=== PATIENT | female | born 1940 | race Caucasian/White ===

== ENCOUNTER 2019-10-23 11:14 | Outpatient (CLI) | payer MEDICARE, SELFPAY ==
--- NOTE | ~2019-10-23 | CT_ITS ---
EXAMINATION: CT brain wo con DATE: 10/23/2019 11:47 INDICATION: Fall from bed. Meniere disease. TECHNIQUE: Computed tomography (CT) of the head was performed without intravenous contrast. The mA wa s adjusted according to patient size. Iterative reconstruction technique was employed. Exam dose: 52 9.67 mGy-cm total exam DLP. COMPARISON: None FINDINGS: Bilateral vertebral artery and carotid siphon internal carotid artery calcifications. There is nonspecific diminished attenuation of the cerebral white matter, likely due to chronic small vessel ischemic changes. Minimal left basal ganglia calcification. No intracranial mass lesion or hemorrhage or recent cerebrovascular accident is evident. No midline s hift or mass effect. Mild age-consistent cerebral volume loss. No subdural or epidural hematoma is detected. Postoperative change of the inferomedial wall of the right orbit and opacification of right ethmoid a ir cells. The remainder of the included paranasal sinuses and the mastoid air cells are normally deve loped and aerated. No fracture or bone destruction of the cranial vault. IMPRESSION: Cerebral atherosclerosis and chronic small vessel ischemic changes of the cerebral white matter No acute intracranial finding Reviewed, dictated and finalized at [facility]. Reviewed, dictated and finalized at location B. 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
== END 2019-10-23 11:15 | disposition home or self-care (01) ==
PROVIDERS: PCP Physician Assistant; Visit Provider Physician Assistant
DX: H81.09 Meniere's disease, unspecified ear (principal); I67.2 Cerebral atherosclerosis; W06.XXXA Fall from bed, initial encounter
CPT/HCPCS: 70450

== ENCOUNTER 2019-10-24 14:50 | Outpatient (CLI) | payer MEDICARE, SELFPAY ==
--- NOTE | ~2019-10-24 | XR_ITS ---
XR chest 2V DATE: 10/24/2019 15:09 INDICATION: Cough for 2 weeks. History of asthma. TECHNIQUE: PA and lateral views COMPARISON: 04/26/2012 two-view chest FINDINGS: There is prominent bibasilar discoid atelectasis or scarring, increased in prominence kemal red to 04/26/2012. Otherwise no pulmonary consolidation is noted. No pleural effusion or pulmonary vas cular congestion or pneumothorax is detected. Normal heart size. 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
== END 2019-10-24 14:51 | disposition home or self-care (01) ==
PROVIDERS: PCP Physician Assistant; Visit Provider Family Medicine
DX: R05 Cough (principal); R91.8 Other nonspecific abnormal finding of lung field
CPT/HCPCS: 71046

== ENCOUNTER 2019-11-18 09:16 | Outpatient (CLI) | payer MEDICARE, SELFPAY ==
--- NOTE | ~2019-11-18 | MM_ITS ---
EXAMINATION: MM screening jennifer BI w pino HISTORY: Screening mammogram TECHNIQUE: Craniocaudal and mediolateral oblique 3-D tomosynthesis images were obtained and synthetic 2-D images were generated. CAD analysis was submitted and interpreted. COMPARISON: Comparison to multiple prior studies sequentially, with oldest reviewed study dated 08/04. BREAST PARENCHYMAL COMPOSITION: There are scattered areas of fibroglandular density. FINDINGS: The right breast is stable without evidence for malignancy. There is a developing focal asy mmetry lower inner quadrant of the left breast with associated calcifications. IMPRESSION: 1. Developing left breast asymmetry. 2. Additional mammographic views and possible breast ultrasound are recommended. BI-RADS Category 0: Incomplete: Needs additional imaging evaluation. Reviewed, dictated and finalized at location A. IMPRESSION: 1. Developing left breast asymmetry. 2. Additional mammographic views and possible breast ultrasound are recommended . BI-RADS Category 0: Incomplete: Needs additional imaging evaluation.
== END 2019-11-18 09:17 | disposition home or self-care (01) ==
PROVIDERS: PCP Physician Assistant; Visit Provider Nurse Practitioner Women's Health
DX: Z12.31 Encounter for screening mammogram for malignant neoplasm of breast (principal); R92.8 Other abnormal and inconclusive findings on diagnostic imaging of breast
CPT/HCPCS: 77063; 77067

== ENCOUNTER 2019-12-06 11:57 | Outpatient (CLI) | payer MEDICARE, SELFPAY ==
--- NOTE | ~2019-12-06 | MMUS_ITS ---
EXAMINATION: MM diagnostic jennifer LT w pino, US breast LT limited HISTORY: TECHNIQUE: Additional 3-D tomosynthesis images of were performed and synthetic 2-D images were genera bianka. CAD analysis was submitted and interpreted. High resolution breast ultrasound was performed. COMPARISON: None FINDINGS: MAMMOGRAPHIC FINDINGS: There is a focal approximately 2 x 5 mm ill-defined opacity with microcalcifications situated anterio rly in the lower inner quadrant of the left breast. ULTRASOUND: There is no evidence of focal abnormal solid or cystic lesion or shadowing in the vicinity of the low er inner quadrant left breast soft tissue density and calcifications. IMPRESSION: 1. Focal 2 x 5 mm opacity with microcalcifications, lower inner left breast 2. Stereotactic biopsy is recommended. BI-RADS category 4, suspicious findings. Dr. Gupta telephoned the report and stereotactic biopsy recommendation on 12/06/2019 at 1318 hours to Tawnya Borges. Reviewed, dictated and finalized at location A. IMPRESSION: 1. Focal 2 x 5 mm opacity with microcalcifications, lower inner left breast 2. Stereotactic biopsy is recommended. BI-RADS category 4, suspicious findings. Dr. Gupta telephoned the report and stereotactic biopsy recommendation on 12/06/19 at 1318 hours to Nurse Borges.
== END 2019-12-06 11:58 | disposition home or self-care (01) ==
PROVIDERS: PCP Physician Assistant; Visit Provider Nurse Practitioner Women's Health
DX: R92.8 Other abnormal and inconclusive findings on diagnostic imaging of breast (principal)
CPT/HCPCS: 76642; 77061; 77065; G0279

== ENCOUNTER 2019-12-12 09:02 | Outpatient (CLI) | payer MEDICARE, SELFPAY ==
--- NOTE | ~2019-12-12 | MM_ITS ---
MM post biopsy invasive LT DATE: 12/12/2019 11:01 INDICATION: Post stereotactic biopsy mammogram TECHNIQUE: Digital ML and cc views of left breast following stereotactic biopsy COMPARISON: 12/06/2019 diagnostic left digital mammogram FINDINGS: The biopsy marker is in unexpected position on the opposite lateral side of the breast from the previously noted lower inner quadrant left breast microcalcifications. The left breast lower inner quadrant microcalcifications were all successfully removed by this stereo tactic biopsy, with a biopsy marker unfortunately is not in the same position as the microcalcificati ons. Biopsy marker is now in the upper outer quadrant as opposed to the former position of the microc alcifications in the lower inner quadrant. The biopsy marker should not be used in the event that pre operative wire localization of the area of microcalcifications is indicated. For this purpose, the po sition of the microcalcifications should be estimated based upon the prebiopsy 12/06/2019 diagnostic le ft digital mammogram. IMPRESSION: Migration of biopsy marker into upper outer quadrant; the microcalcifications that were b iopsied successfully were in the lower inner quadrant. The biopsy marker should NOT be used for any p reoperative wire localization procedure should surgical excision of the former area of microcalcifica tions be required. Positional microcalcifications can be estimated based upon the 12/06/2019 diagnosti c left mammogram prior to the stereotactic biopsy. Reviewed, dictated and finalized at [facility]. Reviewed, dictated and finalized at location A. IMPRESSION: Migration of biopsy marker into upper outer quadrant; the microcalc ifications that were biopsied successfully were in the lower inner quadrant. Th e biopsy marker should NOT be used for any preoperative wire localization proce dure should surgical excision of the former area of microcalcifications be requ ired. Positional microcalcifications can be estimated based upon the 12/06/2019 diagnostic left mammogram prior to the stereotactic biopsy.
--- NOTE | ~2019-12-12 | MM_ITS ---
MM stereotactic specimen LT DATE: 12/12/2019 11:00 INDICATION: Stereotactic biopsy of lower inner quadrant left breast microcalcifications TECHNIQUE: Digital mammographic exposure of 2 separate collections of stereotactic biopsy specimen ti ssue COMPARISON: 12/06/2019 diagnostic left digital mammogram 12/12/2019 post-stereotactic biopsy diagnostic left mammogram FINDINGS: The initial collection of specimen tissue contained 2 contiguous rounded microcalcification s. A second set of biopsy tissue was obtained, yielding numerous microcalcifications of interest. IMPRESSION: Successful removal of all microcalcifications of interest from the lower inner quadrant o f the left breast Reviewed, dictated and finalized at Location [facility]. Reviewed, dictated and finalized at location A. IMPRESSION: Successful removal of all microcalcifications of interest from the lower inner quadrant of the left breast
--- NOTE | ~2019-12-12 | MM_ITS ---
ADDENDUM 12/13/2019 pathology report: Proliferative fibrocystic changes without atypia; no evidence of neoplasm The pathology and mammographic findings are concordant. 12/30/19 -[facility] EXAMINATION: MM stereotactic bx LT, Specimen Radiograph, Tissue Marker Clip Placement, Unilateral Mammogram DATE: 12/12/2019 10:59 INDICATION: Abnormal mammogram: Focal 2 x 5 mm asymmetric opacity with microcalcifications in the lower inner left breast reported on 12/06/2019 diagnostic left mammogram. TECHNIQUE AND FINDINGS: The risks and potential benefits of the procedure were discussed with the patient and written informed consent was obtained. Timeout procedure was performed. The patient was placed in the prone position on the dedicated stereotactic table with the left breast in mediolateral compression, and the area of interest was localized and targeted utilizing digital imaging with stereotaxis. After sterile preparation of the skin, 1% lidocaine was utilized for local anesthesia at the skin puncture site and 1% lidocaine with epinephrine was utilized for deeper local anesthesia/is about the biopsy site. A 9G UniQure vacuum assisted biopsy needle was advanced to the level of the calcification of interest from a medial approach utilizing stereotactic guidance and a total of 24 tissue core biopsies were obtained. A specimen radiograph demonstrates that the calcifications of interest are included within the tissue cores. A tissue marker clip was then placed at the biopsy site. A digital mammographic exposure confirmed the successful deployment of the biopsy marker. The needle was removed and hemostasis was achieved. A sterile bandage was applied. The patient tolerated the procedure well and there is no evidence of significant immediate complication. The patient was given verbal as well as written postprocedural instructions prior to discharge from the department. Tissue cores were submitted to surgical pathology for histologic analysis. A 2-view right unilateral digital mammogram was obtained post procedure, demonstrating the tissue marker clip in unexpected position on the far opposite lateral side of the breast. The marker apparently did not return to expected position with release of compression of the breast following the biopsy. I telephoned Oralia polanco, Director of Mammography, and indicated that this patient's case should be tagged in the event that surgical excision of the area of microcalcifications is requested, in order to prevent biopsy of the wrong area in the lateral breast as opposed to the original position of the calcifications in the lower inner quadrant. IMPRESSION: 1. Successful stereotactic biopsy of left breast lower inner quadrant microcalcifications, 2. Unexpected biopsy marker position in the lower outer quadrant; the mammographic calcifications of interest that were successfully biopsied were located in the lower inner quadrant. Should the area of the former microcalcifications need to be surgically removed, the biopsy marker should not be used as a marker for position for the prior microcalcifications. Former position of the microcalcifications should be estimated based upon the pre- biopsy 12/06/2019 diagnostic left mammogram Please refer to pathology report for histologic analysis. Reviewed, dictated and finalized at Location [facility]. Reviewed, dictated and finalized at location A. MTDD IMPRESSION: 1. Successful stereotactic biopsy of left breast lower inner quadrant microca lcifications, 2. Unexpected biopsy marker position in the lower outer quadrant; the mammogra phic calcifications of interest that were successfully biopsied were located in the lower inner quadrant. Should the area of th
== END 2019-12-12 09:03 | disposition home or self-care (01) ==
PROVIDERS: PCP Physician Assistant; Visit Provider Nurse Practitioner Women's Health
DX: R92.8 Other abnormal and inconclusive findings on diagnostic imaging of breast (principal)
CPT/HCPCS: 19081; 88305; A4648

== ENCOUNTER 2020-01-17 13:22 | Outpatient (CLI) | payer MEDICARE, SELFPAY ==
--- NOTE | ~2020-01-17 | US_ITS ---
US breast LT limited DATE: 01/17/2020 14:56 INDICATION: Redness, induration, tenderness; recent stereotactic biopsy, 12/12/2019, no evidence of lorraine plasm TECHNIQUE: High-resolution ultrasound imaging at area of concern at 3:00 2 cm from nipple, 4:00 3 cm from nipple and subareolar areas COMPARISON: 12/06/2019 left breast ultrasound FINDINGS: There is interval development of some prominent ducts, some with debris. No suspicious shad owing or irregular poorly circumscribed mass is evident. IMPRESSION: BI-RADS Category 3: Probably benign Recommendation: 6 month left breast ultrasound follow-up Reviewed, dictated and finalized at Location [facility]. Reviewed, dictated and finalized at location A.
== END 2020-01-17 13:23 | disposition home or self-care (01) ==
LOC: ANHIMG 13:24
PROVIDERS: PCP Physician Assistant; Visit Provider Obstetrics & Gynecology Gynecologic Oncology
DX: N61.0 Mastitis without abscess (principal)
CPT/HCPCS: 76642

== ENCOUNTER 2020-06-12 13:05 | Outpatient (CLI) | payer MEDICARE, SELFPAY ==
--- NOTE | ~2020-06-12 | MM_ITS ---
EXAMINATION: MM diagnostic jennifer LT w pino HISTORY: Recent benign left breast biopsy TECHNIQUE: Additional 3-D tomosynthesis images of the left breast were performed and synthetic 2-D im ages were generated. CAD analysis was submitted and interpreted. COMPARISON: Comparison to multiple prior studies sequentially, with oldest reviewed study dated 12/2018. BREAST PARENCHYMAL COMPOSITION: Breast composed of scattered areas of fibroglandular density. FINDINGS: There are no suspicious masses, calcifications or architectural distortion in the left debbie st to suggest malignancy. There is a tissue marker in the upper outer quadrant of the left breast. IMPRESSION: 1. No mammographic evidence for malignancy in the left breast. 2. Routine yearly screening mammogram and regular clinical breast examination are recommended. BI-RADS Category 2: Benign finding(s). Reviewed, dictated and finalized at location A. IMPRESSION: 1. No mammographic evidence for malignancy in the left breast. 2. Routine yearly screening mammogram and regular clinical breast examination a re recommended. BI-RADS Category 2: Benign finding(s).
== END 2020-06-12 13:06 | disposition home or self-care (01) ==
PROVIDERS: PCP Physician Assistant; Visit Provider Nurse Practitioner Women's Health
DX: R92.2 Inconclusive mammogram (principal)
CPT/HCPCS: 77061; 77065; G0279

== ENCOUNTER 2020-12-11 08:46 | Outpatient (CLI) | payer MEDICARE, SELFPAY ==
--- NOTE | ~2020-12-11 | MM_ITS ---
EXAMINATION: MM screening jennifer BI w pino HISTORY: Screening mammogram TECHNIQUE: Craniocaudal and mediolateral oblique 3-D tomosynthesis images were obtained and synthetic 2-D images were generated. CAD analysis was submitted and interpreted. COMPARISON: 06/08/2020 diagnostic left digital mammogram 01/17/2020 limited left breast ultrasound 12/06/2019 diagnostic left sonogram and limited left breast ultrasound 11/18/2019, 10/08/2018 bilateral digital screening mammogram examinations BREAST PARENCHYMAL COMPOSITION: There are scattered areas of fibroglandular density. FINDINGS: There is a biopsy marker on the left; history of prior benign left breast biopsy. Occasional bilateral benign calcifications. There is no evidence of suspicious mass, calcification, o r architectural distortion to suggest malignancy in either breast. There has been no suspicious inter joleen change. IMPRESSION: 1. No mammographic evidence of malignancy. 2. Recommend routine screening mammography in one year. BI-RADS Category 2: Benign finding(s). Reviewed, dictated and finalized at location A.
== END 2020-12-11 08:47 | disposition home or self-care (01) ==
LOC: ANHIMG 08:47
PROVIDERS: PCP Physician Assistant; Visit Provider Obstetrics & Gynecology Gynecologic Oncology
DX: Z12.31 Encounter for screening mammogram for malignant neoplasm of breast (principal)
CPT/HCPCS: 77063; 77067

== ENCOUNTER 2021-03-17 09:54 | Outpatient (CLI) | payer MEDICARE, SELFPAY ==
--- NOTE | ~2021-03-17 | XR_ITS ---
EXAMINATION: XR elbow RT min 3V DATE: 03/17/2021 10:11 INDICATION: Right elbow injury and pain. TECHNIQUE: 4 views of right elbow were obtained. COMPARISON: None. FINDINGS: Bone alignment is normal. No fracture. There is mild elbow joint osteoarthritis. No elbow j oint effusion. There are dystrophic calcifications posterolateral to radial head. There are enthesoph ytes at medial and lateral humeral epicondyles. IMPRESSION: 1. Mild elbow joint osteoarthritis. Reviewed, dictated and finalized at location A.
== END 2021-03-17 09:55 | disposition home or self-care (01) ==
PROVIDERS: PCP Physician Assistant; Visit Provider Physician Assistant
DX: M19.021 Primary osteoarthritis, right elbow (principal)
CPT/HCPCS: 73080

== ENCOUNTER 2021-05-11 12:43 | Outpatient (CLI) | payer MEDICARE, SELFPAY ==
--- NOTE | ~2021-05-11 | XR_ITS ---
EXAMINATION: XR chest 2V DATE: 05/11/2021 13:11 INDICATION: Essential primary hypertension, congestive heart failure TECHNIQUE: PA and lateral views of the chest are obtained. COMPARISON: 05/24/2020 FINDINGS: The lungs are free of acute opacities. There is chronic atelectasis versus scarring in the lung bases. There is no pleural effusion or pneumothorax. The cardiomediastinal silhouette is normal. There is mild thoracic spondylosis. IMPRESSION: 1. No acute cardiopulmonary abnormality. Reviewed, dictated and finalized at location B.
== END 2021-05-11 12:44 | disposition home or self-care (01) ==
LOC: ANHIMG 12:49
PROVIDERS: PCP Physician Assistant; Visit Provider Physician Assistant
DX: I50.9 Heart failure, unspecified (principal); I10 Essential (primary) hypertension
CPT/HCPCS: 71046

== ENCOUNTER → 2021-06-26 03:16 | Outpatient (CLI) | payer MEDICARE, SELFPAY ==
[2021-06-26 18:07] LABS: SARS-CoV-2 RNA PCR Negative
== END ==
PROVIDERS: PCP Physician Assistant; Visit Provider Physician Assistant
DX: Z20.822 Contact with and (suspected) exposure to COVID-19 (principal)
CPT/HCPCS: C9803; U0003; U0005

== ENCOUNTER → 2021-08-17 01:06 | Outpatient (CLI) | payer MEDICARE, SELFPAY ==
[2021-08-18 02:02] LABS: SARS-CoV-2 RNA PCR Positive
== END ==
PROVIDERS: PCP Physician Assistant; Visit Provider Family Medicine
DX: U07.1 COVID-19 (principal)
CPT/HCPCS: C9803; U0003; U0005

== ENCOUNTER 2021-12-17 14:29 | Outpatient (CLI) | payer MEDICARE, SELFPAY ==
--- NOTE | ~2021-12-17 | MM_ITS ---
EXAMINATION: MM screening jennifer BI w pino HISTORY: Screening TECHNIQUE: Craniocaudal and mediolateral oblique 3-D tomosynthesis images were obtained and synthetic 2-D images were generated. CAD analysis was submitted and interpreted. COMPARISON: Comparison to multiple prior studies sequentially, with oldest reviewed study dated 11/2019. BREAST PARENCHYMAL COMPOSITION: Breast composed of scattered areas of fibroglandular density FINDINGS: There is no evidence of suspicious mass, calcification, or architectural distortion to sugg est malignancy in either breast. There has been no suspicious interval change. IMPRESSION: 1. No mammographic evidence of malignancy. 2. Recommend routine screening mammography in one year. BI-RADS Category 1: Negative Reviewed, dictated and finalized at location A.
== END 2021-12-17 14:30 | disposition home or self-care (01) ==
LOC: ANHIMG 14:30
PROVIDERS: PCP Physician Assistant; Visit Provider Obstetrics & Gynecology Gynecologic Oncology
DX: Z12.31 Encounter for screening mammogram for malignant neoplasm of breast (principal)
CPT/HCPCS: 77063; 77067

== ENCOUNTER 2023-05-09 14:01 | Outpatient (CLI) | payer MEDICARE, SELFPAY ==
--- NOTE | ~2023-05-09 | MM_ITS ---
EXAMINATION: MM screening jennifer BI w pino HISTORY: Screening mammogram TECHNIQUE: Craniocaudal and mediolateral oblique 3-D tomosynthesis images were obtained and synthetic 2-D images were generated. CAD analysis was submitted and interpreted. COMPARISON: December 17, 2021, December 11, 2020 bilateral screening mammogram examinations BREAST PARENCHYMAL COMPOSITION: There are scattered areas of fibroglandular density. FINDINGS: There is no evidence of suspicious mass, calcification, or architectural distortion to sugg est malignancy in either breast. There has been no suspicious interval change. IMPRESSION: 1. No mammographic evidence of malignancy. 2. Recommend routine screening mammography in one year. BI-RADS Category 1: Negative Reviewed, dictated and finalized at location A.
== END 2023-05-09 14:02 | disposition home or self-care (01) ==
PROVIDERS: PCP Physician Assistant; Visit Provider Obstetrics & Gynecology Gynecologic Oncology
DX: Z12.31 Encounter for screening mammogram for malignant neoplasm of breast (principal)
CPT/HCPCS: 77063; 77067

== ENCOUNTER 2023-05-15 10:51 | Outpatient (CLI) | payer MEDICARE, SELFPAY ==
--- NOTE | ~2023-05-15 | US_ITS ---
EXAMINATION: US carotid duplex BI DATE: 05/15/2023 11:27 INDICATION: Carotid stenosis and occlusion TECHNIQUE: Grayscale, color Doppler, and pulsed Doppler images of the cervical carotid arteries were obtained. The degree of vessel stenosis is placed in one of the following categories: normal, <50%, 5 0-69%, >=70% but less than near-occlusion, near-occlusion, or total occlusion. Note that percent sten osis relative to normal distal artery lumen diameter is indirectly measured from velocity measurement s as described by Carlos, et al. Radiology 2003; 229:340-346. Notes: Normal: Peak systolic velocity <125 centimeters/sec and no plaque <50%. Peak systolic velocity <125 ( EDV <40; ICA/CCA PSV ratio <2.0; used these factors only a tandem lesions or low cardiac output or co ntralateral disease) 50-69 %: PSV 125-230 (EDV 40-100; ratio 2-4) >= 70% but less than near occlusion: PSV greater than 230 (EDV > 100; ratio> 4.0) Near Occlusion: PSV that is variable; markedly narrowed lumen Occlusion: Absent flow on color/spectral Doppler and no lumen on roberts scale. COMPARISON: None. FINDINGS: RIGHT: The right common carotid artery (CCA) peak systolic velocity (PSV) is 61 cm/s. The right internal car otid artery (ICA) PSV is 85 cm/s. The right ICA end-diastolic velocity (EDV) is 19 cm/s. The right IC A/CCA PSV ratio is 1.4. The external carotid artery (ECA) PSV is 96 cm/s. There is antegrade flow in the right vertebral artery. LEFT: The left CCA PSV is 78 cm/s. The left ICA PSV is 81 cm/s. The left ICA EDV is 83 cm/s. The left ICA/C CA PSV ratio is 1.2. The ECA PSV is 83 cm/s. There is antegrade flow in the left vertebral artery. IMPRESSION: 1. Less than 50% stenosis in the right internal carotid artery by sonographic criteria. 2. Less than 50% stenosis in the left internal carotid artery by sonographic criteria. Reviewed, dictated and finalized at location B. IMPRESSION: 1. Less than 50% stenosis in the right internal carotid artery by sonographic c juan. 2. Less than 50% stenosis in the left internal carotid artery by sonographic cr william.
== END 2023-05-15 10:52 | disposition home or self-care (01) ==
PROVIDERS: PCP Physician Assistant; Visit Provider Physician Assistant
DX: I65.23 Occlusion and stenosis of bilateral carotid arteries (principal)
CPT/HCPCS: 93880

== ENCOUNTER 2023-05-23 14:10 | Outpatient (CLI) | payer MEDICARE, SELFPAY ==
--- NOTE | ~2023-05-23 | US_ITS ---
EXAMINATION: US arterial ankle brachial ind DATE: 05/23/2023 15:17 INDICATION: Peripheral vascular disease TECHNIQUE: Segmental pressures and plethysmographic and Doppler waveforms of the brachial and lower e xtremity arteries were obtained. COMPARISON: None. FINDINGS: Right and left brachial artery pressures as well as pressures at the bilateral posterior tibial and d orsalis pedis arteries were unable to be obtained due to inability to occlude the vessels. Biphasic w aveforms with brisk systolic upstrokes identified at the bilateral posterior tibial and dorsalis pedi s arteries. Great toe pressures of 92 mmHg on the right and 107 on the left. IMPRESSION: 1. Limited study with bilateral brachial arteries and arteries at the bilateral ankles unable to be o ccluded which could be due to either elevated pressures were vessel wall calcification. There are how ever biphasic waveforms with brisk systolic upstrokes at the bilateral posterior tibial and dorsalis pedis arteries with right to arterial pressures of 92 and 107 mmHg on the right and left respectively . Reviewed, dictated and finalized at location A. IMPRESSION: 1. Limited study with bilateral brachial arteries and arteries at the bilateral ankles unable to be occluded which could be due to either elevated pressures w ere vessel wall calcification. There are however biphasic waveforms with brisk systolic upstrokes at the bilateral posterior tibial and dorsalis pedis arterie s with right to arterial pressures of 92 and 107 mmHg on the right and left res pectively.
== END 2023-05-23 14:11 | disposition home or self-care (01) ==
PROVIDERS: PCP Physician Assistant; Visit Provider Physician Assistant
DX: I73.9 Peripheral vascular disease, unspecified (principal)
CPT/HCPCS: 93922

== ENCOUNTER 2023-08-30 09:42 | Outpatient (CLI) | payer MEDICARE, SELFPAY ==
--- NOTE | 2023-08-30 10:53 | ECG_ITS ---
Measurements Intervals [place] Rate: 51 P: 14 MS: 169 QRS: -23 QRSD: 91 T: 86 QT: 408 QTc: 376 Interpretive Statements SINUS BRADYCARDIA BORDERLINE LEFT AXIS DEVIATION [QRS AXIS < -20] NONSPECIFIC ST & T-WAVE ABNORMALITY NO PREVIOUS ECG AVAILABLE FOR COMPARISON Electronically Signed On 08-30-2023 20:59:59 GATE GUARD by Mago Masterson M.D.
[2023-08-30 11:22] LABS: Basophils Absolute Auto 0.1 K/mm3 (0.0-0.1); Basophils Percent Auto 0.9 % (0.2-1.2); Eosinophils Absolute Auto 0.1 K/mm3 (0-0.3); Eosinophils Percent Auto 1.4 % (0-4.4); Hemoglobin 14.1 g/dL (12.0-15.0); Immature Granulocyte Absolute 0.01 K/mm3 (0.00-0.031); Immature Granulocyte Percent A 0.2 % (0-0.5); Lymphocytes Absolute Auto 1.89 K/mm3 (0.9-3.2); Lymphocytes Percent Auto 33.4 % (18.3-44.2); Mean Corpuscular Hemoglobin 30.2 pg (26-34); Mean Corpuscular Volume 94.2 fl (80-100); Mean Platelet Volume 10.3 fl (7.4-10.4); Monocytes Absolute Auto 0.4 K/mm3 (0.1-0.6); Monocytes Percent Auto 6.4 % (2.6-8.5); Neutrophils Absolute Auto 3.3 K/mm3 (1.3-6.7); Neutrophils Percent Auto 57.7 % (45.5-73.1); Platelet Count Result 208 k/mm3 (150-375); Red Blood Count 4.67 M/mm3 (4.2-5.4); Red Cell Distribution Width 13.8 % (11.5-14.5); White Blood Count 5.7 K/mm3 (4.5-10.0)
[2023-08-30 11:30] LABS: Appearance Urine Cloudy (Clear); Bacteria Urine 1+ /hpf; Bilirubin Urine Negative (Negative); Blood Urine Negative (Negative); Color Urine Yellow (Yellow); Glucose Urine UA Negative (Negative); Ketones Urine Negative (Negative); Leukocyte Esterase Ur 3+ LEU/UL (Negative); Nitrate Urine Negative (Negative); Non Pathogenic Casts 0-2; Protein Urine Negative (Negative); RBC Urine 0-2 /hpf (0-2); Specific Grav Ur 1.012 (1.001-1.035); Squamous Epithelial Cell Urine Moderate /hpf (Few); Urobilinogen Urine 0.2 mg/dL (<2.0); WBC Urine 21-50 /hpf
[2023-08-30 11:32] LABS: Add Urine Microscopic? YES
[2023-08-30 11:33] LABS: Albumin Level 4.2 g/dL (3.5-5.1); Anion Gap 10 mmol/L (8-16); Blood Urea Nitrogen 15 mg/dL (7-17); Calcium 9.4 mg/dL (8.4-10.2); Carbon Dioxide 29 mmol/L (22-30); Chloride 101 mmol/L (98-107); Estimated Glomerular Filt Rate 43; Glucose 117 mg/dL (65-110); Hemoglobin A1C 5.6 % (<5.7); Potassium 3.7 mmol/L (3.4-5.0); Sodium 140 mmol/L (137-145)
[2023-08-30 11:33] LABS: Prothrombin Time 13.4 Seconds (11.1-14.7)
[2023-08-30 11:34] LABS: Partial Thromboplastin Time 28.4 SECONDS (22.3-36.8)
[2023-08-30 11:35] LABS: Urine Cotinine NEGATIVE
== END 2023-08-30 09:43 | disposition home or self-care (01) ==
LOC: ANHSURGERY 09:51
PROVIDERS: PCP Physician Assistant; Visit Provider Orthopaedic Surgery
DX: M17.12 Unilateral primary osteoarthritis, left knee (principal); Z01.818 Encounter for other preprocedural examination
CPT/HCPCS: 80048; 80307; 81001; 82040; 83036; 85025; 85610; 85730; 86850; 86900; 86901; 87081; 87086; 87088; 93005

== ENCOUNTER 2023-09-21 14:44 | Observation (INO) | payer MEDICARE, SELFPAY ==
[2023-08-30 09:58] VITALS: BMI 25.2
--- NOTE | 2023-08-30 10:25 | PC.NURSE ---
Addendum entered by Mel Martel RN 08/30/23 10:32: PLEASE ARRIVE AT [facility] AT 1000 FOR A 1200 SURGERY MAY HAVE CLEAR LIQUIDS UNTIL 9 AM MORNING OF SURGERY 20 [employer] Original Note: Report to the Outpatient Waiting Room, entrance under the green pavilion located off [facility], at time _0630 on date ___09/12/23____. Planned Procedure Time: 0830 . Time changes happen often and if your time is changed the preop area will call you the afternoon before. - You and your visitor will be asked to self-screen and do not enter if you have any COVID symptoms. - A mask is optional within the hospital at this time. Patients may have clear liquids (water, carbonated beverages, clear teas, apple juice) until 3 hours prior to surgery( 5:30 AM) with a maximum of 20 ounces. - No food from midnight until time of surgery Take the following medications with a SIP of water the morning of surgery: ___AMLODIPINE,SYMBICORT INHALER,METOPROLOL DO NOT STOP ANY OF YOUR OTHER PRESCRIPTION MEDICATIONS PRIOR TO SURGERY ?EXCEPT THE FOLLOWING Medications to discontinue per physician ___HOLD ALL VITAMINS AND SUPPLEMENTS 3 DAYS PRE OP . LAST DOSE 09/08/23 Please no make-up, nail sammarinese, hairspray, perfume, deodorant, or body powder the day of surgery. No jewelry (including any body piercings) or valuables the day of surgery, leave them at home. Please take a shower or bath the night before, or the morning of, surgery with an antibacterial soap. Wear comfortable, loose fitting clothing. Children are encouraged to wear pajamas. - Jewelry must be removed prior to entering the operating room. Rings and piercings that are not removed may be cut off. - The hospital will not accept responsibility for valuables. - Please leave all valuables, including medications, at home the day of surgery. If you are going home after surgery, a licensed drop hammer pile driver operator must drive you home. - NO public transportation without another adult if you receive anesthesia. - We recommend that an adult stay with you for 24 hours following discharge. - We also recommend that you do not drive, make important decision, drink alcoholic beverages, or take any drugs that were not prescribed by your health care provider for at least 24 hours after your discharge time. Follow any additional instructions given to you from your surgeon. If you or anyone in your household have experienced Covid symptoms in the past week, please notify your surgeon or the nurse liaison at the phone number below for possible testing. VERBAL AND WRITTEN instructions given to ___PATIENT and asked if any additional questions and then verbalized understanding. Patient advised to call surgeon office or pre surgery nurse liaison [phone] if any additional questions.
[2023-08-30 10:55] VITALS: BP 167/64; PULSE 55; RESP 18; TEMP 37.3; O2SAT 98
--- NOTE | 2023-09-18 10:22 | PC.NURSE ---
Report to the Outpatient Waiting Room, entrance under the green pavilion located off [facility], at time _0600 on date _09/20/23 . Planned Procedure Time: __0730 . Time changes happen often and if your time is changed the preop area will call you the afternoon before. - You and your visitor will be asked to self-screen and do not enter if you have any COVID symptoms. - A mask is optional within the hospital at this time. Patients may have clear liquids (water, carbonated beverages, clear teas, apple juice) until 3 hours prior to surgery ( 4:30 AM )with a maximum of 20 ounces. - No food from midnight until time of surgery - Infants may have breast milk until 4 hours before surgery, infant formula 6 hours prior to surgery. - Children will be allowed to drink immediately following surgery. If applicable, please bring a bottle or sippy cup to assist with drinking. Juice, water, soda, and popsicles are readily available. For infants on formula, please bring formula the day of surgery. Pacifiers are allowed. Take the following medications with a SIP of water the morning of surgery: __AMLODIPINE,SYMBICORT INHALER,METOPROLOL DO NOT STOP ANY OF YOUR OTHER PRESCRIPTION MEDICATIONS PRIOR TO SURGERY ?EXCEPT THE FOLLOWING Medications to discontinue per physician ____HOLD ALL VITAMINS AND SUPPLEMENTS 3 DAYS PRE OP.LAST DOSE 09/16/23 Please no make-up, nail armenian, hairspray, perfume, deodorant, or body powder the day of surgery. No jewelry (including any body piercings) or valuables the day of surgery, leave them at home. Please take a shower or bath the night before, or the morning of, surgery with an antibacterial soap. Wear comfortable, loose fitting clothing. Children are encouraged to wear pajamas. - Jewelry must be removed prior to entering the operating room. Rings and piercings that are not removed may be cut off. - The hospital will not accept responsibility for valuables. - Please leave all valuables, including medications, at home the day of surgery. If you are going home after surgery, a licensed concrete pile driver operator must drive you home. - NO public transportation without another adult if you receive anesthesia. - We recommend that an adult stay with you for 24 hours following discharge. - We also recommend that you do not drive, make important decision, drink alcoholic beverages, or take any drugs that were not prescribed by your health care provider for at least 24 hours after your discharge time. For Pediatric surgeries, we recommend two adults accompany the child home. Follow any additional instructions given to you from your surgeon. If you or anyone in your household have experienced Covid symptoms in the past week, please notify your surgeon or the nurse liaison at the phone number below for possible testing. Telephone instructions given to _PT and asked if any additional questions and then verbalized understanding. Patient advised to call surgeon office or pre surgery nurse liaison [phone] if any additional questions.
--- NOTE | 2023-09-18 10:25 | PC.NURSE ---
PT STATES NO CHANGE IN HEALTH HX SINCE LAST INTERVIEW 08/30/23. SAW DR RAMEY- PIERRE JAVIER IN EMR
--- NOTE | 2023-09-19 14:57 | WPDANESEPPF ---
Anes - Initial Pre Proc Eval Procedure: Operation Date: 09/20/23 07:30 Proposed Procedures p Left Total Knee Arthroplasty - Mars Pedraza MD Date/Time: 09/19/23 14:57 Surgeon: Mars Pedraza MD Pre Op Diagnosis: left knee DJD Patient Data Age: 82 Gender: F Height: 1.6 m Weight: 64.7 kg Last Vital Signs Temp 37.3 C 08/30/23 10:55 Pulse 55 L 08/30/23 10:55 Resp 18 08/30/23 10:55 BP 167/64 H 08/30/23 10:55 Pulse Ox 98 08/30/23 10:55 O2 Del Method Room Air 08/30/23 10:55 Allergies Allergy/AdvReac Type Severity Reaction Status Date / Time codeine Allergy Severe Nausea and Verified 09/20/23 06:30 Vomiting NARCOTIC-ADVERSE SEVERE AdvReac Unknown SEVERE Uncoded 09/20/23 06:30 NAUSEA/VOMITING NAUSEA/VOMITING Home Medications Medication Instructions Recorded Confirmed Type budesonide-formoterol HFA 160 1 inh inhalation BID 09/16/21 09/20/23 History mcg-4.5 mcg/actuation aerosol inhaler (Symbicort) cholecalciferol (vitamin D3) 50 50 mcg PO DAILY 09/16/21 09/20/23 History mcg (2,000 unit) capsule estradiol 0.5 mg tablet 0.5 mg PO DAILY 09/16/21 09/20/23 History losartan 100 mg tablet 100 mg PO DAILY 09/16/21 09/20/23 History meclizine 25 mg tablet 25 mg PO BID PRN Dizziness 09/16/21 09/20/23 History omeprazole 20 mg tablet,delayed 20 mg PO DAILY 09/16/21 09/20/23 History release montelukast 10 mg tablet 10 mg PO DAILY 01/10/23 09/20/23 History albuterol sulfate 90 mcg/actuation 2 puff inhalation Q4H PRN 02/21/23 09/20/23 Rx aerosol inhaler (ProAir HFA) shortness of breath or wheezing #20.1 grams metoprolol succinate 25 mg 12.5 mg PO DAILY #90 tabs 04/11/23 09/20/23 Rx tablet,extended release 24 hr amlodipine 2.5 mg tablet 3 mg PO DAILY 08/30/23 09/20/23 History fexofenadine 60 mg tablet (Toshia 60 mg PO Q12H 08/30/23 09/20/23 History Allergy) magnesium 500 mg tablet 15 mg PO DAILY RLS 08/30/23 09/20/23 History zinc acetate 50 mg (zinc) capsule 100 mg PO DAILY 08/30/23 09/20/23 History (Galzin) ferrous sulfate 27 mg iron tablet 27 mg PO DAILY RLS 09/11/23 09/20/23 History Patient hx anesthesia problems: post op nausea/vomiting Family hx anesthesia problems: none Results Review: All pre-operative results and documents have been reviewed as part of the pre-operative evaluation. 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 GERD (gastroesophageal reflux disease) Hyperlipidemia Hypertension Meniere disease Osteoarthritis Vitamin D deficiency Surgical History Surgical History History of appendectomy History of arthroscopy of right knee 2008 History of cataract extraction with lens replacement bilateral 2010 History of cholecystectomy 10/1995 History of colonoscopy 02/16/2009 History of D&C 09/1993 History of eye surgery orbital blowout fracture repair 01/29/2015 History of foot surgery 1995 History of total abdominal hysterectomy and bilateral salpingo-oophorectomy 10/1993 S/P total knee arthroplasty Family History Family History Other Breast cancer Cerebrovascular accident Family history of cardiovascular disease Hypertension Malignant neoplasm of prostate Social History Social History (Updated 09/11/23 @ 15:01 by Susan Asencio MA) Smoking status: Never smoker Additional smoking assessment comments: DENIES ANY FORM OF TOBACCO USE Alcohol intake: never Substance use: never Do You Feel Safe in your Home?: Yes Lack of Transportation: No Lack of Food: Never True Current Housing: I Have Housing Concerned About Future Housing: No Difficulty Paying Gas/Electric Bills: No Difficulty Paying for M
[2023-09-20] VITALS (18 sets, daily range): BP systolic 131–212; BP diastolic 54–88; PULSE 55–82; RESP 12–24; TEMP 35.8–36.9; O2SAT 98–100
[2023-09-20] MEDS: ACETAMINOPHEN 500 MG TABLET 1000 MG PO ×2 (06:35→14:40)
[2023-09-20] MEDS: LACTATED RINGERS 1,000 ML 30 ML IV CONT ×2 (06:35→11:15)
[2023-09-20] MEDS: SCOPOLAMINE 1 MG PATCH 1 PATCH TRANSDERM (07:08)
[2023-09-20] MEDS: TRANEXAMIC ACID 1,000MG/ISO100 1,000 MG/100 ML BAG 200 MG IVPB (07:09)
--- NOTE | 2023-09-20 07:19 | WPDHPUPDATE1 ---
History and Physical Update Update Date/Time: 09/20/23 07:19 History and Physical has been reviewed, including an updated exam of the patient. There are NO changes in the patient's condition. Risks, benefits, and alternatives have been discussed and questions answered. Patient agrees to proceed with procedure.
[2023-09-20] MEDS: ceFAZolin 2 GM/D5W 50 ML 2 GM/50 ML BAG IVPB ×2 (07:35→16:45)
--- NOTE | 2023-09-20 07:36 | WPDANESPNB ---
Anes - Peripheral Nerve Block Date/Time: 09/20/23 07:36 I have discussed with the patient/family/POA the placement of a peripheral nerve block for post-operative pain management, including associated risks, benefits, complications, and side effects. Alternative methods of post-operative analgesia were detailed. Questions were solicited and answers provided to the satisfaction of the patient/family/POA. Time-Out: A pre-procedural Time-Out was completed immediately before starting the procedure and confirmed: Patient Identification, Site, Procedure, Patient Position and the Availability of Requisite Equipment. Clinical Indications: Acute post-operative pain management requested by the operative surgeon. Nerve Block Insertion Note Anes-nerve block: adductor canal left Patient position: supine Skin prep: chlorhexidine Needle: 22 gauge, stimulating, insulated echogenic needle. Needle length: 80 mm Technique: ultrasound Injectate: bupivacaine 0.5% with epi 5 mcg/ml (30cc - no epi) Observations: tolerated well Complications: none Procedure start time:: 722 Procedure end time:: 727
[2023-09-20] MEDS: TRANEXAMIC ACID 1,000 MG/10 ML AMPUL 1000 MG IV PUSH (08:49)
--- NOTE | 2023-09-20 09:31 | W.PM.PROC2 ---
Procedure Note - Detailed Date of Procedure 09/20/23 Pre-op Diagnosis left knee DJD Post-op Diagnosis Same Procedure Performed L TKA Surgeon Mars Pedraza MD Anesthesia General Description of Procedure THE LEFT KNEE WAS PREPPED AND DRAPED IN THE STERILE FASHION. A MIDLINE SKIN INCISION WAS MADE. A MEDIAL PARAPATELLAR ARTHROTOMY WAS MADE. THE PATELLA WAS EVERTED. THERE WAS TRICOMPARTMENT DJD. THERE WAS MINIMAL PATELLA DJD. AN INTRAMEDULLARY DAVID WAS PLACED IN THE FEMUR. A DISTAL FEMORAL CUT WAS MADE IN 5 DEGREES OF VALGUS REMOVING APPROXIMATELY 11 MM OF BONE FROM THE DISTAL FEMUR. THE FEMUR WAS SIZED TO 60. A 60 FEMORAL CUTTING BLOCK WAS PLACED IN 3 DEGREES OF EXTERNAL ROTATION AND IN ALIGNMENT WITH BE'S LINE AND THE TRANSEPICONDYLAR AXIS. ANTERIOR POSTERIOR AND CHAMFER CUTS WERE MADE. THE CUTS WERE EXCELLENT. NEXT AN INTRAMEDULLARY CUTTING GUIDE WAS PLACED IN THE TIBIA. A TRANS TIBIAL CUT WAS MADE ALONG THE LONG AXIS OF THE TIBIA. APPROXIMATELY 10 MM OF BONE WAS REMOVED FROM THE HIGH SIDE OF THE TIBIA. THE TIBIA WAS THEN PLANED TO A SMOOTH SURFACE. POSTERIOR FEMORAL OSTEOPHYTES WERE REMOVED FROM THE FEMORAL CONDYLES. A 67 TIBIAL TRIAL WAS PLACED IN ALIGNMENT WITH THE 1/3 MEDIAL ASPECT OF THE TIBIAL TUBERCLE. THEN A 60 FEMORAL TRIAL COMPONENT WAS PLACED. BOTH HAD EXCELLENT FITS. EVENTUALLY A 10 MM POLYETHYLENE TRIAL COMPONENT WAS PLACED. THE KNEE WAS TAKEN THROUGH A RANGE OF MOTION. THE KNEE CAME OUT TO FULL EXTENSION. THERE WAS NO ABNORMAL TILT TO THE PATELLA. THERE WAS GOOD A/P AND VARUS/VALGUS STABILITY. THERE WAS NO EXCESSIVE ROLL BACK WITH FLEXION. THE TRIAL COMPONENTS WERE REMOVED. THEN A 60 FEMORAL COMPONENT AND 67 TIBIAL COMPONENT WITH A 10 POLYETHYLENE COMPONENT WERE CEMENTED INTO PLACE. ONCE THE CEMENT WAS HARD THE KNEE WAS TAKEN THROUGH A ROM AGAIN AND FOUND TO BE STABLE WITH NO PATELLA TILT NO EXCESSIVE ROLL BACK WITH FLEXION AND GOOD STABILITY WITH COMPLETE AND FULL EXTENSION. THE KNEE WAS IRRIGATED WITH STERILE BETADINE AND WATER FOR ABOUT 3 MINUTES. THE BLEEDERS WERE CAUTERIZED. THE ARTHROTOMY WAS REPAIRED WITH NUMBER 1 VICRYL. THE SUB CUTANEOUS LAYER WITH 2-0 VICRYL AND THE SKIN WITH MARTHA. THE WOUND WAS WASHED AND A STERILE DRESSING WAS APPLIED. PATIENT WAS EXTUBATED. Estimated Blood Loss -150.0 Pathology None sent Complications No immediate complications Condition Stable Disposition PACU
[2023-09-20] MEDS: hydrALAZINE HCL 20 MG/ML VIAL 10 MG IV PUSH (09:48)
[2023-09-20] MEDS: ONDANSETRON INJ 4 MG/2 ML VIAL IV PUSH (10:02)
[2023-09-20] MEDS: diphenhydrAMINE HCl INJ 50 MG/ML VIAL 12.5 MG IV PUSH ×2 (10:23→10:42)
--- NOTE | 2023-09-20 12:13 | ADMGEN ---
This patient, Mirella Yoder, was admitted to [facility] Surg Room 314-01. Patient/family oriented to hospital policies and general routines including ID bracelet, bed and alarms, visiting hours, pain management, procedures, bathroom and other care routines, personal items, smoking policy, room service/diet, and visiting hours. Information on how to activate the Rapid Response Team has been discussed. Patient/Family are encouraged to report perceived risks to care and to ask questions if they do not understand what they are told or what they should do.
[2023-09-20] MEDS: CHOLECALCIFEROL 1,000 UNITS TABLET 2000 UNITS PO (12:58)
[2023-09-20] MEDS: amLODIPine BESYLATE 2.5 MG TABLET PO (12:58)
[2023-09-20] MEDS: CELECOXIB 200 MG CAPSULE PO ×2 (12:58→16:45)
[2023-09-20] MEDS: SENNA/DOCUSATE SODIUM TABLET 2 TAB PO ×2 (12:58→16:45)
[2023-09-20] MEDS: ASPIRIN 325 MG ENTERIC TABLET PO ×2 (12:58→20:19)
[2023-09-20] MEDS: METOPROLOL SUCCINATE EXT REL 12.5 MG TABCR PO (12:59)
[2023-09-20] MEDS: PANTOPRAZOLE 40 MG TABLET PO (13:01)
[2023-09-20] MEDS: LOSARTAN POTASSIUM 100 MG TABLET PO (13:01)
[2023-09-20] MEDS: polyethylene glycoL 3350 17 GM POWD.PACK PO (13:01)
[2023-09-21] VITALS (7 sets, daily range): BP systolic 124–159; BP diastolic 47–73; PULSE 51–83; RESP 16–18; TEMP 36.1–36.8; O2SAT 97–99
--- NOTE | ~2023-09-21 | XR_ITS ---
EXAMINATION: [id number] DATE: 09/20/2023 09:41 INDICATION: Postoperative evaluation following Status post left total knee arthroplasty knee arthropl asty. TECHNIQUE: Anteroposterior and lateral views of the left knee were obtained. COMPARISON: 08/21/2023 FINDINGS: Left total knee arthroplasty without patellar resurfacing appears well seated and in near anatomic al ignment. No fractures identified. Expected postoperative subcutaneous, intramedullary and intra-taylor cular gas. IMPRESSION: 1. Left total knee arthroplasty, negative for postoperative purposes. Reviewed, dictated and finalized at location A. IC RELATIONS ANALYST
[2023-09-21] MEDS: ceFAZolin 2 GM/D5W 50 ML 2 GM/50 ML BAG IVPB ×2 (00:20→08:49)
[2023-09-21] MEDS: ACETAMINOPHEN 500 MG TABLET 1000 MG PO ×2 (00:21→20:47)
[2023-09-21] MEDS: diphenhydrAMINE HCl INJ 50 MG/ML VIAL 25 MG IV PUSH (00:21)
[2023-09-21] MEDS: diazePAM (*CRX) 5 MG TABLET PO (01:33)
[2023-09-21 07:01] LABS: Basophils Percent Auto 0.2 % (0.2-1.2); Eosinophils Percent Auto 0.3 % (0-4.4); Hematocrit 37.7 % (37.0-47.0); Immature Granulocyte Absolute 0.03 K/mm3 (0.00-0.031); Immature Granulocyte Percent A 0.3 % (0-0.5); Lymphocytes Absolute Auto 2.24 K/mm3 (0.9-3.2); Lymphocytes Percent Auto 20.9 % (18.3-44.2); Mean Corpuscular HGB Conc 31.8 g/dl (32-36); Mean Corpuscular Hemoglobin 29.9 pg (26-34); Mean Corpuscular Volume 93.8 fl (80-100); Mean Platelet Volume 10.7 fl (7.4-10.4); Monocytes Percent Auto 8.9 % (2.6-8.5); Neutrophils Absolute Auto 7.4 K/mm3 (1.3-6.7); Neutrophils Percent Auto 69.4 % (45.5-73.1); Platelet Count Result 201 k/mm3 (150-375); Red Blood Count 4.02 M/mm3 (4.2-5.4); Red Cell Distribution Width 13.9 % (11.5-14.5); White Blood Count 10.7 K/mm3 (4.5-10.0)
[2023-09-21] MEDS: FLUTICASONE/SALMETEROL 115-21 MCG INHALER 1 PUFF 2 PUFF INHALATION ×2 (07:07→20:26)
[2023-09-21 07:15] LABS: Anion Gap 7 mmol/L (8-16); Blood Urea Nitrogen 17 mg/dL (7-17); Calcium 9.3 mg/dL (8.4-10.2); Carbon Dioxide 30 mmol/L (22-30); Chloride 102 mmol/L (98-107); Estimated CRCL calculation 24 ml/min; Estimated Glomerular Filt Rate 36; Glucose 101 mg/dL (65-110); Potassium 3.6 mmol/L (3.4-5.0); Sodium 139 mmol/L (137-145)
[2023-09-21] MEDS: polyethylene glycoL 3350 17 GM POWD.PACK PO (08:48)
[2023-09-21] MEDS: METOPROLOL SUCCINATE EXT REL 12.5 MG TABCR PO (08:49)
[2023-09-21] MEDS: CELECOXIB 200 MG CAPSULE PO ×2 (08:49→17:28)
[2023-09-21] MEDS: CHOLECALCIFEROL 1,000 UNITS TABLET 2000 UNITS PO (08:50)
[2023-09-21] MEDS: SENNA/DOCUSATE SODIUM TABLET 2 TAB PO ×2 (08:50→17:28)
[2023-09-21] MEDS: PANTOPRAZOLE 40 MG TABLET PO (08:50)
[2023-09-21] MEDS: ASPIRIN 325 MG ENTERIC TABLET PO ×2 (08:50→20:15)
--- NOTE | 2023-09-21 10:02 | P.PNAN_ITS ---
Anes - Prog Note Post-Op Date/Time: 09/21/23 10:02 Cardiovascular status: normal Respiratory status: normal Airway patency: baseline Mental status: baseline Post-Op hydration status: normal Vital Signs: Last Vital Signs Temp 36.4 C L 09/21/23 05:09 Pulse 71 09/21/23 08:49 Resp 18 09/21/23 08:05 BP 159/50 H 09/21/23 05:09 Pulse Ox 98 09/21/23 08:05 O2 Del Method Room Air 09/21/23 08:05 O2 Flow Rate 3 09/20/23 11:30 Pain Score (VAS): 0 I/O: Intake & Output 09/20/23 09/21/23 09/21/23 23:59 07:59 15:59 Intake Total 410 600 Output Total 250 Balance 410 350 Laboratory Tests 09/21/23 06:16 09/21/23 06:16 09/21/23 06:16 WBC 10.7 H RBC 4.02 L Hgb 12.0 Hct 37.7 MCV 93.8 MCH 29.9 MCHC 31.8 L RDW 13.9 Plt Count 201 MPV 10.7 H Immature Gran % (Auto) 0.3 Neut % (Auto) 69.4 Lymph % (Auto) 20.9 [place] % (Auto) 8.9 H Eos % (Auto) 0.3 Baso % (Auto) 0.2 Lymph # (Auto) 2.24 [place] # (Auto) 1.0 H Eos # (Auto) 0.0 Baso # (Auto) 0.0 Abs Immat Gran (auto) 0.03 Absolute Neuts (auto) 7.4 H Absolute Nucleated RBC 0.0 Nucleated RBC % 0.0 Sodium 139 Potassium 3.6 Chloride 102 Carbon Dioxide 30 Anion Gap 7 L BUN 17 Creatinine 1.40 H Estim Creat Clear Calc 24 Estimated GFR 36 L Glucose 101 Calcium 9.3 Post-procedural complaints: none Patient Feedback: Patient satisfied with anesthetic care.
--- NOTE | 2023-09-21 10:19 | PM.PNORT ---
Progress Note: A&P Assessment and Plan (1) S/P total knee arthroplasty: Qualifiers: Laterality: left Qualified Code(s): Z96.652 - Presence of left artificial knee joint Code(s): Z96.659 - Presence of unspecified artificial knee joint Status: Acute Assessment and Plan: POD #1 : Left TKA Continue PT/OT. WBAT. Walker. HIGH FALL RISK. Continue pain control. Ice Knee. Protect skin. Limit narcotics. DVT prophylaxis with Aspirin. SCDs. Incentive Spirometry Use reviewed. Monitor Dressing. Change prior to discharge. Bowel Regimen. Dispo: Home with Home Health pending progress with PT/OT and improvement in overall mentation. Plan Reviewed history, exam, radiographs and current labs with attending MD and covering surgeon, Dr. Pedraza, who agrees with current plan as indicated above. No further recommendations from Dr. Pedraza at this time. Subjective Subjective Date/Time Seen: 09/21/23 10:19 Post Op day: 1 Principal diagnosis: Left Knee DJD Interval history: POD #1: Left TKA Patient awake, alert. Answering most questions appropriately. Somewhat confused to situation. Difficulty with mentation overnight per RN. Working well with PT this morning. Review of Systems Review of Systems: All systems reviewed & are unremarkable except as noted in HPI and below Constitutional: Constitutional: Denies fever(s) and Denies headache(s) ENT: Denies headache(s) Cardiovascular: Cardiovascular: Denies chest pain, Denies diaphoresis, Reports lightheadedness, Denies palpitations and Denies dyspnea Respiratory: Respiratory: Denies dyspnea Gastrointestinal: Gastrointestinal: Denies abdominal pain, Denies constipation, Denies nausea and Denies vomiting Genitourinary: Genitourinary: Reports nocturia and Denies dysuria Musculoskeletal: Musculoskeletal: Reports arthralgias (Left Knee ), Reports joint swelling (Left Knee ) and Reports limited range of motion (ROM limited due to recent surgical intervention LEFT Knee ) Neurologic: Denies headache(s) Endocrine: Endocrine: Denies palpitations Exam Const: General: comfortable and no acute distress Resp: Effort & Inspection: normal respiratory effort Cardio: Rate: regular rate Rhythm: regular rhythm GI: GI Palp: Yes Soft to palpation, No Tenderness to palpation present (GI) and No Guarding due to palpation present (GI) Skin: General skin exam: wounds noted (see extremity assessment ) Wounds: wounds noted (see extremity assessment ) Neuro: Cognition (Neuro): normal cognition Other: NV intact aside from block. Moves toes. Sensation intact to light touch. +ankle dorsiflexion/plantarflexion. Extrem: Left lower extremity: normal to inspection, normal capillary refill, knee Details: tenderness (diffuse ) Location: of the patella, swelling (moderate consistent to recent surgery ), abnormal ROM (limited due to recent surgery ) Details: pain with active ROM and pain with passive ROM and ecchymosis (as expected with recent surgery. NO hematoma. ), lower leg (Negative Cristina's Sign ), ankle (+ankle dorsiflexion/plantarflexion ) Details: normal to inspection, no edema and normal ROM; no tenderness and no swelling and foot Details: normal capillary refill, toes with normal ROM, vascular exam Details: dorsalis pedis pulse present and motor-sensory exam light-touch normal; no tenderness Other: Incision left TKA dressing c/d/i. No hematoma. No signs of infection. No wound dehiscence. Psych: Mental Status: mental status grossly normal Objective Data Vital Signs Vital Signs: Vital Signs - 24 hr 09/20/23 10:30 09/20/23 10:45 09/20/23 11:00 Temperature Pulse Rate 82 77 70 Respiratory Rate 24 H 20 16 Blood Pressure 166/68 H 171/79 H 131/88 Pulse Oximetry 100 98 100 Oxygen Delivery Nasal Cannula Nasal Cannula Nasal Cannula Oxygen Flow Rate 3 3 3 09/20/23 11:15 09/20/23 11:30 09/20/23 12:21 Temperature 35.8 C L Pulse Rate 64 69 61 Respira
[2023-09-22] VITALS (11 sets, daily range): BP systolic 112–186; BP diastolic 50–65; PULSE 61–89; RESP 16–18; TEMP 36.1–36.7; O2SAT 95–100
--- NOTE | 2023-09-22 05:21 | PC.NURSE ---
Dr. Matthew called about fall again at 0520, voicemail left.
[2023-09-22] MEDS: FLUTICASONE/SALMETEROL 115-21 MCG INHALER 1 PUFF 2 PUFF INHALATION ×2 (07:50→20:46)
[2023-09-22] MEDS: ASPIRIN 325 MG ENTERIC TABLET PO ×2 (09:11→20:55)
[2023-09-22] MEDS: CELECOXIB 200 MG CAPSULE PO ×2 (09:11→17:36)
[2023-09-22] MEDS: PANTOPRAZOLE 40 MG TABLET PO (09:11)
[2023-09-22] MEDS: CHOLECALCIFEROL 1,000 UNITS TABLET 2000 UNITS PO (09:11)
[2023-09-22] MEDS: METOPROLOL SUCCINATE EXT REL 12.5 MG TABCR PO (09:11)
[2023-09-22] MEDS: SENNA/DOCUSATE SODIUM TABLET 2 TAB PO ×2 (09:11→17:35)
[2023-09-22] MEDS: amLODIPine BESYLATE 2.5 MG TABLET PO (09:12)
[2023-09-22] MEDS: LOSARTAN POTASSIUM 100 MG TABLET PO (09:12)
--- NOTE | 2023-09-22 09:37 | PM.PNORT ---
Progress Note: A&P Assessment and Plan (1) S/P total knee arthroplasty: Qualifiers: Laterality: left Qualified Code(s): Z96.652 - Presence of left artificial knee joint Code(s): Z96.659 - Presence of unspecified artificial knee joint Status: Acute Assessment and Plan: POD #2: Left TKA Continue PT/OT. WBAT. Walker. HIGH FALL RISK. New labs to be obtained. Fall overnight per nursing staff but she was lowered to ground and no reports of injuring knee at time of fall. Continue pain control. Ice Knee. Protect skin. Limit narcotics. Mentation improving overall. DVT prophylaxis with Aspirin. SCDs. Incentive Spirometry Use reviewed. Monitor Dressing. Change prior to discharge. Bowel Regimen. Dispo: Home with Home Health pending progress with PT/OT, improvement in pain control Plan Reviewed history, exam, radiographs with attending MD and patient's surgeon, Dr. Pedraza. New labs pending. Requested MD evaluate patient as well due to pain and increased swelling, left knee. Subjective Subjective Date/Time Seen: 09/22/23 09:37 Post Op day: 2 Principal diagnosis: Left Knee DJD Interval history: POD #2: Left TKA Patient awake, alert. Reports 10/10 pain, left knee, with palpation/movement. She did have an event overnight where her leg buckled and she was lowered to the floor per RN report. Left knee with redness/ecchymosis and mild lateral swelling. Review of Systems Review of Systems: All systems reviewed & are unremarkable except as noted in HPI and below Constitutional: Constitutional: Denies fever(s) and Denies headache(s) ENT: Denies headache(s) Cardiovascular: Cardiovascular: Denies chest pain, Denies diaphoresis, Reports lightheadedness, Denies palpitations and Denies dyspnea Respiratory: Respiratory: Denies dyspnea Gastrointestinal: Gastrointestinal: Denies abdominal pain, Denies constipation, Denies nausea and Denies vomiting Genitourinary: Genitourinary: Reports nocturia and Denies dysuria Musculoskeletal: Musculoskeletal: Reports arthralgias (Left Knee ), Reports joint swelling (Left Knee ) and Reports limited range of motion (ROM limited due to recent surgical intervention LEFT Knee ) Neurologic: Denies headache(s) Endocrine: Endocrine: Denies palpitations Exam Const: General: comfortable and no acute distress Resp: Effort & Inspection: normal respiratory effort Cardio: Rate: regular rate Rhythm: regular rhythm GI: GI Palp: Yes Soft to palpation, No Tenderness to palpation present (GI) and No Guarding due to palpation present (GI) Skin: General skin exam: wounds noted (see extremity assessment ) Wounds: wounds noted (see extremity assessment ) Neuro: Cognition (Neuro): normal cognition (some confusion but answering questions appropriately, back to baseline. ) Other: NV intact aside from block. Moves toes. Sensation intact to light touch. +ankle dorsiflexion/plantarflexion. Extrem: Left lower extremity: normal to inspection, normal capillary refill, knee Details: tenderness (diffuse ) Location: of the patella, swelling (moderate consistent to recent surgery ), abnormal ROM (limited due to recent surgery ) Details: pain with active ROM and pain with passive ROM and ecchymosis (as expected with recent surgery. NO hematoma. ), lower leg (Negative Cristina's Sign ), ankle (+ankle dorsiflexion/plantarflexion ) Details: normal to inspection, no edema and normal ROM; no tenderness and no swelling and foot Details: normal capillary refill, toes with normal ROM, vascular exam Details: dorsalis pedis pulse present and motor-sensory exam light-touch normal; no tenderness Other: Incision left TKA dressing c/d/i. Mild lateral anterior knee swelling. Entire knee with redness/ecchymosis, minimal warmth. Pain with AROM/PROM and palpation. No wound dehiscence. Psych: Mental Status: mental status grossly normal Objective Data Vital Signs Vital Signs: Vital Signs - 24 hr 0
[2023-09-22 10:12] LABS: Basophils Percent Auto 0.3 % (0.2-1.2); Eosinophils Percent Auto 0.3 % (0-4.4); Hematocrit 35.2 % (37.0-47.0); Hemoglobin 11.1 g/dL (12.0-15.0); Immature Granulocyte Absolute 0.03 K/mm3 (0.00-0.031); Immature Granulocyte Percent A 0.4 % (0-0.5); Lymphocytes Absolute Auto 0.98 K/mm3 (0.9-3.2); Lymphocytes Percent Auto 13.1 % (18.3-44.2); Mean Corpuscular HGB Conc 31.5 g/dl (32-36); Mean Corpuscular Hemoglobin 29.8 pg (26-34); Mean Corpuscular Volume 94.4 fl (80-100); Mean Platelet Volume 10.2 fl (7.4-10.4); Monocytes Absolute Auto 0.8 K/mm3 (0.1-0.6); Monocytes Percent Auto 10.1 % (2.6-8.5); Neutrophils Absolute Auto 5.7 K/mm3 (1.3-6.7); Neutrophils Percent Auto 75.8 % (45.5-73.1); Platelet Count Result 182 k/mm3 (150-375); Red Blood Count 3.73 M/mm3 (4.2-5.4); Red Cell Distribution Width 14.2 % (11.5-14.5); White Blood Count 7.5 K/mm3 (4.5-10.0)
[2023-09-22 10:36] LABS: Anion Gap 7 mmol/L (8-16); Blood Urea Nitrogen 18 mg/dL (7-17); Calcium 8.9 mg/dL (8.4-10.2); Carbon Dioxide 28 mmol/L (22-30); Chloride 105 mmol/L (98-107); Estimated CRCL calculation 30 ml/min; Estimated Glomerular Filt Rate 48; Glucose 178 mg/dL (65-110); Potassium 3.7 mmol/L (3.4-5.0); Sodium 140 mmol/L (137-145)
--- NOTE | 2023-09-22 16:15 | PM.DS ---
DS: Admitting Diagnosis Discharge Date 09/23/23 Admitting Diagnosis LEFT KNEE DJD DS: Discharge Diagnosis Discharge Diagnosis Plan LEFT KNEE REPLACEMENT DS: Summary Hospital Course Reason for hospitalization: LEFT TKA Hospital Course: PATIENT WAS ADMITTED S/P TOTAL KNEE ARTHROPLASTY FOR POSTOPERATIVE MEDICAL MANAGEMENT, PAIN CONTROL AND MOBILIZATION WITH PHYSICAL AND OCCUPATIONAL THERAPY. THE PATIENT PROGRESSED WELL WITH PT/OT. LABS AND VITALS REMAINED STABLE AND PAIN WELL CONTROLLED. THE PATIENT HAS BEEN CLEARED TO BE DISCHARGED HOME. FOLLOW UP APPOINTMENT SCHEDULED. DISCHARGE INSTRUCTIONS DISCUSSED AT LENGTH WITH THE PATIENT. MEDICATIONS REVIEWED. Status at Discharge Cognitive/behavioral status at discharge: STABLE Time Spent with Patient Time attestation: Total time spent providing and/or coordinating discharge services: Exam Narrative: S/P LEFT TKA DOING WELL. HER SYMPTOMS OF ORTHOSTATICS HAVE IMPROVED. SHE WOULD LIKE ONE MORE DAY OF PT TO IMPROVE HER GAIT. 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, NV INTACT, POSTOP MILD HEMATOMA CONSISTENT WITH SURGERY, CALF SOFT NON TENDER THIGH SOFT NON TENDER, NEG HOMANS SIGN DS: Data Data Completed and Pending Labs on day of discharge: Labs from last 24 hours 09/22/23 10:03 WBC 7.5 RBC 3.73 L Hgb 11.1 L Hct 35.2 L MCV 94.4 MCH 29.8 MCHC 31.5 L RDW 14.2 Plt Count 182 MPV 10.2 Immature Gran % (Auto) 0.4 Neut % (Auto) 75.8 H Lymph % (Auto) 13.1 L [place] % (Auto) 10.1 H Eos % (Auto) 0.3 Baso % (Auto) 0.3 Lymph # (Auto) 0.98 [place] # (Auto) 0.8 H Eos # (Auto) 0.0 Baso # (Auto) 0.0 Abs Immat Gran (auto) 0.03 Absolute Neuts (auto) 5.7 Absolute Nucleated RBC 0.0 Nucleated RBC % 0.0 Sodium 140 Potassium 3.7 Chloride 105 Carbon Dioxide 28 Anion Gap 7 L BUN 18 H Creatinine 1.10 H Estim Creat Clear Calc 30 Estimated GFR 48 L Glucose 178 H Calcium 8.9 Procedures/Treatments: LEFT TKA Discharge Plan Discharge Attending physician on discharge: Mars Pedraza Discharging Clinician: Mars Pedraza Anticipated Discharge Date/Time: 09/23/23 13:00 Patient Disposition: Home Health Service Activity: may shower, no driving and follow weight bearing status Diet: as tolerated Wound Care Instructions: other - see discharge instructions Discharge Instructions: Remove the Scopolamine patch that was placed behind your left ear in 72 hours or less. Wash your hands after touching. Post Op Total Knee Replacement Instructions Dr. Mars Pedraza [phone] Your dressing will be changed prior to your discharge. You will be sent home with one additional dressing to be changed on post op day 7 by the home health RN. Your nickie will be removed on the 14th day after surgery and steri-strips will be placed. Please practice good hand hygiene and do not touch your incision in order to prevent infection. You may shower with your dressing but do not submerge in a bath tub. Do not drive or operate machinery until you are released by Dr. Pedraza. Do not walk without a walker for any reason until you are released by Dr. Pedraza. Continue to use your ice machine. Please use a towel or pillow case to protect your skin before applying your ice machine. Do NOT place a pillow under your knee. You may use a pillow from the calf down if needed. This will prevent a flexion contracture postoperatively. You may begin use of your CPM machine at home if you have been given one pre-operatively. DO NOT USE WHILE YOU ARE SLEEPING. Your first post op appointment was sent to you via mail preoperatively. If you have any questions or are unable to make your appointment, please contact our office for scheduling questions. Your medications have been sent to your pharmacy. You have been sent home with pain medication. Please brain picker an over the counter stool softener to prevent constipation due to narcotic use. Please keep this in
[2023-09-22] MEDS: ACETAMINOPHEN 500 MG TABLET 1000 MG PO (20:57)
[2023-09-23] MEDS: ACETAMINOPHEN 500 MG TABLET 1000 MG PO (05:11)
[2023-09-23 06:00] VITALS: BP 165/52; PULSE 61; RESP 18; TEMP 36.6; O2SAT 98
[2023-09-23] MEDS: polyethylene glycoL 3350 17 GM POWD.PACK PO (08:26)
[2023-09-23] MEDS: CHOLECALCIFEROL 1,000 UNITS TABLET 2000 UNITS PO (08:26)
[2023-09-23] MEDS: LOSARTAN POTASSIUM 100 MG TABLET PO (08:26)
[2023-09-23] MEDS: PANTOPRAZOLE 40 MG TABLET PO (08:26)
[2023-09-23] MEDS: CELECOXIB 200 MG CAPSULE PO (08:26)
[2023-09-23] MEDS: amLODIPine BESYLATE 2.5 MG TABLET PO (08:26)
[2023-09-23 08:27] VITALS: PULSE 62
[2023-09-23] MEDS: ASPIRIN 325 MG ENTERIC TABLET PO (08:27)
[2023-09-23] MEDS: METOPROLOL SUCCINATE EXT REL 12.5 MG TABCR PO (08:27)
[2023-09-23] MEDS: SENNA/DOCUSATE SODIUM TABLET 2 TAB PO (08:27)
[2023-09-23 09:12] VITALS: O2SAT 93
[2023-09-23] MEDS: FLUTICASONE/SALMETEROL 115-21 MCG INHALER 1 PUFF 2 PUFF INHALATION (09:12)
== END 2023-09-23 12:45 | disposition home health service (06) ==
LOC: ANHSURGERY 15:22 → ANH3MEDSUR 15:22
PROVIDERS: Nurse Practitioner Family; Admitting Provider Orthopaedic Surgery; PCP Family Medicine; Visit Provider Orthopaedic Surgery
PROC: (CPT 27447; principal; 2023-09-20 07:30)
DX: M17.12 Unilateral primary osteoarthritis, left knee (principal); Z96.651 Presence of right artificial knee joint; G47.33 Obstructive sleep apnea (adult) (pediatric); E11.9 Type 2 diabetes mellitus without complications; K21.9 Gastro-esophageal reflux disease without esophagitis; G89.18 Other acute postprocedural pain; E78.5 Hyperlipidemia, unspecified; I25.10 Atherosclerotic heart disease of native coronary artery without angina pectoris; E55.9 Vitamin D deficiency, unspecified; J45.909 Unspecified asthma, uncomplicated; I10 Essential (primary) hypertension; Z87.891 Personal history of nicotine dependence; Z86.16 Personal history of COVID-19; Z79.51 Long term (current) use of inhaled steroids; Z79.890 Hormone replacement therapy; Z79.899 Other long term (current) drug therapy; Z82.49 Family history of ischemic heart disease and other diseases of the circulatory system
CPT/HCPCS: 64447; 27447; 36415; 73560; 80048; 80307; 81001; 82040; 83036; 85025; 85610; 85730; 86850; 86900; 86901; 87081; 87086; 87088; 93005; 94640; 97110; 97116; 97161; 97165; 97530; 97535; A9270; C1713; C1776; G0378; J0171; J0360; J0690; J1100; J1200; J1885; J2250; J2405; J2704; J2795; J3010; J7120

== ENCOUNTER 2023-11-09 09:00 | Outpatient (RCR) | payer MEDICARE, SELFPAY ==
--- NOTE | 2023-10-17 14:43 | OPREHPOC ---
Outpatient Therapy Plan of Care This is a Multidisciplinary Plan of Care that may contain components documented by all disciplines (PT, OT, and ST.) PT Problem 1 PT Problem #1 Knowledge Deficit PT Goal 1 Goal 1. Patient will perform independent HEP Target Visit 4 PT Problem 2 PT Problem #2 Pain PT Goal 1 Goal 1. Pain no higher than 1/10 with cooking and cleaning tasks Target Visit 8 PT Problem 3 PT Problem #3 Impaired Gait PT Goal 1 Goal 1. Improve 2 minute walk test to at least 350 feet without device and no gait deviations Target Visit 8 PT Problem 4 PT Problem #4 Impaired Strength PT Goal 1 Goal 1. Left knee flexion and extension 5/5 in both planes Target Visit 8
--- NOTE | 2023-10-17 14:43 | PTOPEVAL1 ---
Assessment and note entered by Anya Doran DPT Evaluation Information Assessment Status Evaluation Subjective Information Highest pain in the last week 5/10 and lowest 0/10 . Currently walking with a walker at all times. Has not been doing her normal cooking and cleaning activities. Dresses and bathes independently. Pt has been released to drive but has not yet (son is driving her to appointments). Does not have stairs at home except 1 step to get in the house. Pt also has [employer] and reports she has had a bad spell the past few days and has had to be inactive. Returns to [place] in January. Patient goal: be able to do what I want to do Reported Pain Level Pain Score 0: Self Report Assessment PT Clinical Summary The patient is presenting to skilled therapy s/p L TKA on 09/20/23. She presents with decreased knee range of motion, decreased strength, and gait impairments which are contributing to her pain and difficulty with normal tasks including cooking and cleaning and to her current walker use. She will highly benefit from therapy to address these impairments in order to reduce pain and return to prior level of function. Plan of Care Interventions Electrical Stimulation,Gait Training,Hot Pack/Cold Pack,Manual Therapy,Neuro Re-education,Patient/ Caregiver Education,Therapeutic Activities, Therapeutic Exercise PT Services Indicated Yes Treatment Frequency and 2 times a week for 8 visits Duration These treatments will address the objective and functional deficits as defined above. The patient will be advanced safely and appropriately in order for the patient to progress towards his/her prior level of function. Additional exercises will be introduced and as well as a comprehensive home exercise program upon discharge, if needed, ?to ensure carryover of functional gains achieved in the clinic. This treatment plan has been reviewed and agreement upon by the patient.
--- NOTE | 2023-11-09 13:16 | PTOPDC ---
Assessment and note entered by Kobi Levy, PT Evaluation Information Assessment Status Discharge Diagnosis Left TKA, Gait instability Onset 09/20/23 Subjective Information Reports that overall she feels she is doing very well. No concerns from last treatments near Syncope. She is following up with Toolroom Machinist tomorrow to ensure that there is no standing concern with her orthostasis. Feels comfortable with her mobility, objective measures, and would like to be discharged at this time. Reported Pain Level Pain Score 0: Self Report Assessment PT Clinical Summary Patient has met all goals for therapy at this time and is suitable for discharge to [facility]. She will be following up with food and beverage associate to assess episodes of syncope. Plan of Care PT Services Indicated D/C to [facility]
--- NOTE | 2023-11-09 13:16 | OPREHPOC ---
Outpatient Therapy Plan of Care This is a Multidisciplinary Plan of Care that may contain components documented by all disciplines (PT, OT, and ST.) PT Problem 1 PT Problem #1 Knowledge Deficit PT Goal 1 Goal 1. Patient will perform independent HEP Target Visit 4 Progress Met PT Problem 2 PT Problem #2 Pain PT Goal 1 Goal 1. Pain no higher than 1/10 with cooking and cleaning tasks Target Visit 8 Progress Met PT Problem 3 PT Problem #3 Impaired Gait PT Goal 1 Goal 1. Improve 2 minute walk test to at least 350 feet without device and no gait deviations Target Visit 8 Progress Met PT Problem 4 PT Problem #4 Impaired Strength PT Goal 1 Goal 1. Left knee flexion and extension 5/5 in both planes Target Visit 8 Progress Met
== END 2023-11-09 13:45 | disposition home or self-care (01) ==
LOC: ANHPT 09:00
PROVIDERS: PCP Family Medicine; Visit Provider Orthopaedic Surgery
DX: Z47.1 Aftercare following joint replacement surgery (principal); Z96.652 Presence of left artificial knee joint
CPT/HCPCS: 97110; 97116; 97140; 97161; 97530

== ENCOUNTER 2024-02-05 10:08 | Outpatient (CLI) | payer MEDICARE, SELFPAY ==
--- NOTE | ~2024-02-05 | XR_ITS ---
Lumbosacral Spine: AP, oblique, and lateral views Clinical History: Pain Findings: The normal lordotic curve is maintained. No fracture seen. There is 4 mm anterolisthesis of L3 over L4. There is moderate to severe degenerative disc narrowing L4-L5 and L5-S1. There is severe facet arthropathy throughout the lumbar spine, especially from L3 through S1. The sacroiliac joints are normally outlined. Impression: Moderate to severe degenerative spondylosis, as above. 4 mm anterolisthesis of L3 over L4. Reviewed, dictated and finalized at location M. Impression: Moderate to severe degenerative spondylosis, as above. 4 mm anterolisthesis of L3 over L4.
--- NOTE | ~2024-02-05 | XR_ITS ---
Thoracic spine: Clinical Indication: Back pain AP and lateral views were performed. No fracture is seen. There is normal alignment of the vertebrae. The intervertebral disc spaces appe ar normal. Paravertebral soft tissues appear normal. Impression: No significant abnormalities noted. Reviewed, dictated and finalized at [facility]. Impression: No significant abnormalities noted.
== END 2024-02-05 10:09 | disposition home or self-care (01) ==
LOC: ANHIMG 10:10
PROVIDERS: PCP Family Medicine; Visit Provider Physician Assistant
DX: M47.896 Other spondylosis, lumbar region (principal); M47.897 Other spondylosis, lumbosacral region; M43.16 Spondylolisthesis, lumbar region
CPT/HCPCS: 72072; 72110

== ENCOUNTER 2024-11-08 16:05 | Outpatient (CLI) | payer MEDICARE, SELFPAY ==
--- NOTE | ~2024-11-08 | XR_ITS ---
CHEST RADIOGRAPH, PA AND LATERAL CLINICAL HISTORY: J18.9 - Pneumonia, unspecified organism . COMPARISON: 05/11/2021 TECHNIQUE: PA and lateral views of the chest. FINDINGS The cardiomediastinal silhouette is unremarkable. Redemonstration of bibasilar atelectasis, unchanged from previous examination 05/11/2021. The lungs are otherwise clear. IMPRESSION: No focal infiltrate or effusion. Reviewed, dictated and finalized at location A. [employer]
--- OUTSIDE RECORDS SUMMARY | 2024-11-08 16:09 | XMS_ITS | Clinical Summary ---
Author Organization [facility] Address [address] [place] [id number] Care Team Providers Care Fish Cutter Name Role Phone Unavailable Primary Care Provider Unavailabl e Allergies Active Allergy Reactions Criticality Noted Date Comments Codeine Vomiting 04/24/2023 Medications No known medications Social History Tobacco Use Types Packs/Day Years Used Date Smoking Tobacco: Never Assessed Comments Unknown Sex and Gender Information Value Date Recorded Sex Assigned at Not on file Legal Sex Female 8:15 PM CDT Gender Identity Not on file Sexual Orientation Not on file Last Filed Vital Signs Vital Sign Reading Time Taken Comments Blood Pressure 211/75 04/24/2023 1:30 PM CDT Pulse 71 04/24/2023 1:35 PM CDT Temperature - - Respiratory Rate 16 04/24/2023 1:35 PM CDT Oxygen Saturation 71% 04/24/2023 1:35 PM CDT Inhaled Oxygen Concentration - - Weight 71.2 kg (157 lb) 04/24/2023 11:06 AM CDT Height 160 cm (5' 3 ) 04/24/2023 11:06 AM CDT Body Mass Index 27.81 04/24/2023 11:06 AM CDT Plan of Treatment Health Maintenance Due Date Last Done Comments DTaP, Tdap and Td Vaccines (1 - Tdap) 1961 Zoster Vaccines (1 of 2) 1992 Annual Medicare Wellness Visit 11/30/2007 Dexa Scan (General) 11/30/2007 Pneumococcal Vaccine: 65+ Years (2 of 2 - PPSV23 or PCV20) 07/25/2017 07/25/2016 RSV Immunization or 60+ Years (1 - 1-dose 75+ series) 2017 COVID-19 Vaccine ( - season) 2024 Influenza Adult (#1) 2024 07/16/2018, 07/23/2017, 07/25/2016, Additional history exists Meningococcal B Vaccine Aged Out No l onger eligible based on patient's age to complete this topic Meningococcal Vaccine Aged Out No angel melony eligible based on patient's age to complete this topic RSV Immunizations Under 20 Months Aged Out No longer eligible based on patient's age to complete this topic Insurance [facility]
--- OUTSIDE RECORDS SUMMARY | 2024-11-08 16:09 | XMS_ITS | Referral Summary ---
Author Organization [facility] [address] Address [address] [place] [address] Care Team Providers Care Lead Sql Developer Name Role Phone Kip Uriarte MD Primary Care Provider [phone] Allergies Active Allergy Reactions Criticality Noted Date Comments Codeine Unknown 03/22/2021 Medications losartan (COZAAR) 100 mg tablet 01/15/2021 Active Symbicort 160-4.5 mcg/actuation inhaler 12/25/2020 Active meclizine (ANTIVERT) 25 mg tablet as needed 01/15/2021 Active estradioL (ESTRACE) 0.5 mg tablet 01/27/2021 Active omeprazole (PriLOSEC) 20 mg capsule Take 1 capsule (20 mg total) by mouth daily Active albuterol HFA (PROVENTIL HFA,VENTOLIN HFA,PROAIR HFA) 90 mcg/actuation inhaler Inhale 2 puffs every 6 (six) hours as needed for wheezing Active ascorbic acid (vitamin C) 1,000 mg tablet Take 1 tablet (1,000 mg total) by mouth daily Active cholecalciferol (cholecalcifero l) 25 mcg (1,000 unit) tablet Take 1 tablet (1,000 Units total) by mouth daily Active zinc 50 mg tablet Take by mouth Active montelukast (SINGULAIR) 10 mg tablet Take 1 tablet (10 mg total) by mouth nightly Active fexofenadine (MARTIN) 60 mg tablet Take 1 tablet (60 mg total) by mouth daily Active ferrous sulfate (IRON ORAL) Take 28 mg by mouth Active MAGNESIUM ORALIndications :hypomagnesemia 1,000 mg Acti ve cyanocobalamin (Vitamin B-12) 1,000 mcg tabletIndicatio ns:Prevention of Vitamin B12 Deficiency Take 1 tablet (1,000 mcg total) by mouth daily Active Active Problems Problem Noted Date Diagnosed Date Preoperative cardiovascular examination 06/23/20 Orthostatic hypotension 02/13/2023 Essential hypertension 03/31/2021 Syncope and collapse 03/22/2021 Social History Tobacco Use Types Packs/Day Years Used Date Smoking Tobacco: Former Cigarettes Q uit: 1959 Smokeless Tobacco: Never Tobacco Cessation:Counseling Given: Not Answered Personal Safety Answer Date Recorded Getting School Help Needed Not on file 09/03 Comments Unknown Sex and Gender Information Value Date Recorded Sex Assigned at Not on file Legal Sex Female 1:17 PM CDT Gender Identity Not on file Sexual Orientation Not on file Last Filed Vital Signs Vital Sign Reading Time Taken Comments Blood Pressure 170/66 01/22/2024 12:04 PM CDT Pulse 56 01/22/2024 12:04 PM CDT Temperature - - Respiratory Rate 16 06/23/2023 10:31 AM CDT Oxygen Saturation 99% 11/10/2023 3:02 PM APPLICATION PENETRATION TESTER Inhaled Oxygen Concentration - - Weight 62.3 kg (137 lb 6.4 oz) 01/22/2024 12:04 PM CDT Height 160 cm (5' 3 ) 01/22/2024 12:04 PM CDT Body Mass Index 24.34 01/22/2024 12:04 PM CDT Plan of Treatment Not on file Insurance [employer] MEDICARE GOLD LICENSE OF [facility] MEDICARE Address: [facility] [id number] [place] [phone] Care Teams Lead Sql Developer Relationship Specialty Start Date End Date Kip Uriarte MD [address] [place] [address] SAFIA CONTRERAS [id number] PCP - General Family Medicine 03/18/21
--- OUTSIDE RECORDS SUMMARY | 2024-11-08 16:09 | XMS_ITS | Clinical Summary ---
Author Organization [facility] Address [address] [place] [address] Care Team Providers Care Safety Fire Boss Name Role Phone Unavailable Primary Care Provider Unavailabl e Social History Tobacco Use Types Packs/Day Years Used Date Smoking Tobacco: Never Assessed Comments Unknown Sex and Gender Information Value Date Recorded Sex Assigned at Not on file Legal Sex Female 1:25 PM BOOTMAKER HAND Gender Identity Not on file Sexual Orientation Not on file Plan of Treatment Health Maintenance Due Date Last Done Comments DEXA Bone Density 1940 Hepatitis C Virus (HCV) Screening 1940 TdaP Immunization 1942 Zoster Immunization (1 of 2) 1992 Pneumococcal Immunization (50+ years) (2 of 2 - PPSV23) 07/25/2017 07/25/2016 Respiratory Syncytial Virus (RSV) Immunization (Adult) (1 - 1-dose 75+ series) 2017 Influenza Immunization (#1) 05/05/202407/05, 07/23/2017, 07/25/2016, Additional history exists SARS-COV-2 Immunization ( season) 2024 Pneumococcal Immunization Combined Discontinued 07/25/2016 Hepatitis B Immunization Aged Out No longer eligible based on patient's age to complete this topic Meningococcal Immunization (ACWY) Aged Out No longer eligible based on patient's age to complete this topic Rotavirus Immunization Aged Out No lo nger eligible based on patient's age to complete this topic
--- OUTSIDE RECORDS SUMMARY | 2024-11-08 16:09 | XMS_ITS | Clinical Summary ---
Author Organization [facility] [address] Address [address] [place] [address] Care Team Providers Care Vendor Management Consultant Name Role Phone Kip Uriarte MD Primary Care Provider [phone] Allergies Active Allergy Reactions Criticality Noted Date [...] Essential hypertension 03/31/2021 Syncope and collapse 03/22/2021 Surgical History Surgery Date Site/Laterality Comments APPENDECTOMY DILATION AND CURETTAGE OF UTERUS FOOT SURGERY CATARACT EXTRACTION HYSTERECTOMY EYE SURGERY Right REPLACEMENT TOTAL KNEE Right Medical History Medical History Date Comments Hypertension Dizzy Meniere's disease Family History Medical History Relation Name Comments Heart attack Father Breast cancer Mother Relation Name Status Comments Father (Age 75) Mother (Age 62) Social History Tobacco Use Types Packs/Day Years [...] on file Sexual Orientation Not on file Obstetrics History Last Filed Vital Signs Vital Sign Reading Time Taken Comments Blood Pressure 170/66 01/22/2024 12:04 PM CDT Pulse 56 01/22/2024 12:04 PM CDT Temperature - - Respiratory Rate 16 06/23/2023 10:31 AM CDT Oxygen Saturation 99% 11/10/2023 3:02 PM BEACH ATTENDANT Inhaled Oxygen Concentration - - Weight 62.3 kg (137 lb 6.4 oz) 01/22/2024 12:04 PM CDT Height 160 cm (5' 3 ) 01/22/2024 12:04 PM CDT Body Mass Index 24.34 01/22/2024 12:04 PM CDT Plan of Treatment Health Maintenance Due Date Last Done Comments Depression Screening 1942 Fall Risk Assessment 1942 Osteoporosis Screening-Bone Density Scan 1942 DTaP/Tdap/Td Vaccine (1 - Tdap) 1953 Hepatitis B Screening 1960 Zoster Vaccine (1 of 2) 1992 Well Visit 65+ 11/30/2007 Pneumococcal vaccine 65+ (2 of 2 - PPSV23) 07/25/2017 07/25/2016 Influenza Vaccine (#1) 2024 8, 07/23/2017, 07/25/2016, Additional history exists Insurance [employer] MEDICARE GOLD Care Teams Vendor Management Consultant Relationship Specialty Start Date End Date Kip Uriarte MD [address] [place] [address] SAFIA CONTRERAS [id number] PCP - General Family Medicine 03/18/21
== END 2024-11-08 16:06 | disposition home or self-care (01) ==
LOC: ANHIMG 16:07
PROVIDERS: PCP Family Medicine
DX: J18.9 Pneumonia, unspecified organism (principal)
CPT/HCPCS: 71046

== ENCOUNTER 2025-08-30 21:02 | Emergency (ER) | payer MEDICARE, SELFPAY ==
--- NOTE | ~2025-08-30 | CT_ITS ---
CT HEAD NON-CONTRAST Clinical History: syncope, recent R MCA CVA Comparison: 10/23/2019 Technique: Unenhanced axial images skull base to vertex Coronal, sagittal reformats CT images acquired with automatic exposure control for dose reduction DLP: 605 mGy-cm Findings: Chronic infarct right cerebellum. Chronic white matter microvascular ischemic changes. Right side worse. Sulci, ventricles: Unremarkable. No intracerebral hemorrhage. No evidence acute territorial infarct. No mass effect, midline shift. Bony calvarium intact. Visualized paranasal sinuses: Clear. Mastoid air cells: Clear. Prior repair right orbit medial wall. IMPRESSION: 1. No acute intracranial findings. Reviewed, dictated and finalized at location R. TENANCE MACHINIST
[2025-08-30 21:12] VITALS: BP 156/63; PULSE 80; RESP 16; O2SAT 100
--- NOTE | 2025-08-30 21:23 | ECG_ITS ---
Test Date: 2025-08-30 21:42:30 Measurements Intervals [place] Rate: 72 P: 67 ID: [id number] QRS: -20 QRSD: 102 T: 122 QT: 387 QTc: 426 Interpretive Statements SINUS RHYTHM BORDERLINE R WAVE PROGRESSION, ANTERIOR LEADS CONSIDER INFERIOR INFARCT, AGE INDETERMINATE ST-T WAVE ABNORMALITY IN HIGH LATERAL LEADS- CONSIDER ISCHEMIA BASELINE WANDER- V5 ABNORMAL ECG No previous ECG available for comparison Electronically Signed On 08-30-2025 21:45:17 SPIRAL GEAR GENERATOR by Rafael Kenny D.O.
--- NOTE | 2025-08-30 21:25 | ED_ITS ---
HPI - Syncope General Chief Complaint: Syncope Stated Complaint: SYNCOPE, & EMESIS X 2 Time Seen by Provider: 08/30/25 21:12 History of Present Illness HPI narrative: 84-year-old female with past medical history including recent he stroke with residual right-sided deficits, hypertension, prediabetes, diastolic heart dysfunction, coronary artery disease, hyperlipidemia, Meniere's disease, previous vasovagal syncope. Patient presents to the emergency department via EMS for a syncopal event at home. Patient states she was doing her home physical therapy exercises including leg raises and calf stretches for about 15 minutes and then she started getting lightheaded and tried to sit down. She lost consciousness for a few moments and regained consciousness afterwards without any transient confusion or interval shaking events as witnessed by family providing collateral information. EMS was called given her cardiac and neurological history. Patient is on dual antiplatelet therapy with aspirin Plavix but no other anticoagulants or blood thinners. She is recovering well from her stroke with increasing strength and coordination from her recent physical therapy. Stroke was in July 05 and she was at [facility] for this. Denies any symptoms at this time and states she feels back to her normal state of health without any complaints. Denies any headache, vision change, neck pain, dizziness, lightheadedness, chest pain, shortness a breath, abdominal pain, back pain, fever, chills. Patient states it feels very similar to last time she had a vasovagal event after she discussed with her maintenance dispatcher. Patient and family states that she has techniques and exercises to counteract vasovagal events as they have happened previously and they believe that is what happened today. Related Data Home Medications ?Medication ?Instructions ?Recorded ?Confirmed ?Last Taken ?Type cholecalciferol (vitamin D3) 50 50 mcg PO DAILY 08/13/25 09/15/23 History mcg (2,000 unit) capsule magnesium 500 mg tablet 15 mg PO DAILY RLS 08/30/23 08/13/25 09/15/23 History clopidogrel 75 mg tablet 75 mg PO 08/13/25 08/13/25 U nknown History Allergies Allergy/AdvReac Type Severity Reaction Status Date / Time codeine Allergy Severe Nausea and Verified 08/13/25 10:14 Vomiting broccoli AdvReac Nausea and Verified 08/13/25 10:14 Vomiting NARCOTIC-ADVERSE SEVERE AdvReac Unknown SEVERE Uncoded 08/13/25 10:14 NAUSEA/VOMITING NAUSEA/VOMITING Review of Systems 2 Review of Systems: As reviewed above in HPI All systems reviewed & are unremarkable except as noted in HPI and below [facility] Past Medical History Medical History 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 History of CVA (cerebrovascular accident) Mixed hyperlipidemia Essential hypertension 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 Hypothyroidism, unspecified Heart failure, unspecified Unspecified asthma, uncomplicated Degenerative joint disease of knee Osteoarthritis CAD (coronary artery disease) left ventricular hypertrophy GERD (gastroesophageal reflux disease) Vitamin D deficiency Corneal dystrophy Allergic rhinitis Meniere disease Surgical History Surgical History S/P total knee arthroplasty LT TKA 09/20/23 History of eye surgery orbital blowout fracture repair 01/29/2015 History of colonoscopy 02/16/2009 History of cataract extraction with lens replacement bilateral 2010 History of arthroscopy of right knee 2009 History of foot surgery 1995 History of cholecystectomy 10/1995 History of total abdominal hysterectomy and bilateral salpingo-oophorectomy 10/1993 History of D&C 09/1993 History of appendectomy Family History Family History Other Breast cancer Cerebrovascular accident Family history of cardiovascular disease Hypertension Malignant neoplasm of prostate Social History Social History Smoking packs per day: 1 Smoking cigarettes per day: 20.0 Years smoked: 2 Smoking pack-years: 2.00 Smoking status: Former smoker Additional smoking assessment comments: DENIES ANY FORM OF TOBACCO USE Alcohol intake: never Substance use: never Substance use type: does not use Lack of Transportation: No Lack of Food: Never True Current Housing: I Have Housing Concerned About Future Housing: No Difficulty Paying Gas/Electric Bills: No Difficulty Paying for Meds: No Currently Unemployed: No Education: Grade School Difficulty w/ Childcare or Family Care: No Living arrangements: alone Occupation/Education: retired Gender identity (if verbalized by the patient): Female Sexual Orientation (if Verbalized by the Patient): Straight or Heterosexual Spiritual care concerns: No Exam 2 Narrative: GENERAL: [Well-appearing, well-nourished, and in no acute distress.] HEAD: [Normocephalic, atraumatic.] EYES: [PERRLA and EOMI.] ENT: Nares clear, no rhinorrhea or epistaxis. Mucous membranes moist. NECK: Supple. CHEST: [Clear to auscultation. No respiratory distress.] HEART: 2+ symmetric pulses with regular rate and rhythm. ABDOMEN: [Soft, nondistended], [nontender], [No rigidity or guarding] EXTREMITIES: Normal range of motion. [No edema.] SKIN: Warm, dry, no rash. NEURO: No new focal deficits, chronic right upper and lower extremity weakness 4-5. No ataxia. No facial asymmetry or slurring speech. No new strength or sensory changes. PSYCH: [Normal mood and affect.] Course Vital Signs Vital signs: Vital Signs Pulse Rate 80 08/30/25 21:12 Respiratory Rate 16 08/30/25 21:12 Blood Pressure 156/63 H 08/30/25 21:12 Pulse Oximetry 100 08/30/25 21:12 Oxygen Delivery Room Air 08/30/25 21:12 Temperature 36.8 C 08/30/25 23:09 Pulse Rate 88 08/30/25 23:09 Respiratory Rate 18 08/30/25 23:09 Blood Pressure 156/63 H 08/30/25 21:12 Pulse Oximetry 93 08/30/25 23:09 Oxygen Delivery Room Air 08/30/25 21:12 Discharge Plan Discharge Clinical Impression: Syncope Patient Disposition: Home Condition: Stable Instructions: Antibiotic Form, Syncope (ED) Additional Instructions: Symptoms consistent with vasovagal syncope most likely. Laboratory studies EKG and head CT were unrevealing and unremarkable today. You were monitored for several hours without any symptoms. If you start experiencing recurrent event or new symptoms such as chest pain, headache, nausea, seizures, stroke symptoms, difficulty in breathing or any other emergencies please return to the ER otherwise call your doctor for close outpatient follow-up visit this week. Maintain good hydration and continue your home activities with physical therapy. Patient Language: Occitan Prescriptions: No Action cholecalciferol (vitamin D3) 50 mcg (2,000 unit) capsule 50 mcg PO DAILY montelukast 10 mg tablet 10 mg PO DAILY Qty: 100 1RF albuterol sulfate [ProAir HFA] 90 mcg/actuation HFA aerosol inhaler 2 puff inhalation Q4H PRN (Reason: shortness of breath or wheezing) Qty: 20.1 3RF clopidogrel 75 mg tablet 75 mg PO magnesium 500 mg Tablet 15 mg PO DAILY fluticasone furoate-vilanterol [Breo Ellipta] 100-25 mcg/dose blister with device 1 inh inhalation DAILY Qty: 60 3RF amlodipine 10 mg tablet 10 mg PO DAILY Qty: 100 1RF atorvastatin 80 mg tablet 80 mg PO DAILY Qty: 100 1RF losartan 50 mg tablet 50 mg PO DAILY Qty: 100 1RF meclizine 25 mg tablet 25 mg PO BID PRN (Reason: Dizziness) Qty: 90 1RF omeprazole 20 mg capsule,delayed release(DR/EC) 20 mg PO DAILY Qty: 100 1RF Galzin 50 mg (zinc) capsule 100 mg PO DAILY Qty: 100 1RF Follow-up/Referrals: Kip Uriarte MD [Primary Care Provider, [facility]] Time of Disposition: 02:37 MDM MDM Narrative Medical decision making narrative: 84-year-old female with past medical history including recent he stroke with residual right-sided deficits, hypertension, prediabetes, diastolic heart dysfunction, coronary artery disease, hyperlipidemia, Meniere's disease, previous vasovagal syncope. Patient presents to the emergency department via EMS for a syncopal event at home. Patient states she was doing her home physical therapy exercises including leg raises and calf stretches for about 15 minutes and then she started getting lightheaded and tried to sit down. She lost consciousness for a few moments and regained consciousness afterwards without any transient confusion or interval shaking events as witnessed by family providing collateral information. EMS was called given her cardiac and neurological history. Patient is on dual antiplatelet therapy with aspirin Plavix but no other anticoagulants or blood thinners. She is recovering well from her stroke with increasing strength and coordination from her recent physical therapy. Stroke was in July 05 and she was at [facility] for this. Denies any symptoms at this time and states she feels back to her normal state of health without any complaints. Denies any headache, vision change, neck pain, dizziness, lightheadedness, chest pain, shortness a breath, abdominal pain, back pain, fever, chills. Patient states it feels very similar to last time she had a vasovagal event after she discussed with her maintenance dispatcher. Patient and family states that she has techniques and exercises to counteract vasovagal events as they have happened previously and they believe that is what happened today. Patient overall appears very well and not any distress. She has no symptoms at this time. Blood pressure 156/63. No tachycardia, tachypnea or hypoxemia. She has no neurological deficits. She has chronic right-sided deficits from her recent stroke in July that is improving and states that nothing is changed from her normal. She has strong symmetric pulses with clear breath sounds without any external evidence of injury or trauma. She did not fall or hit her head. She does have significant cardiac and neurological risk factors or broad workup was conducted to rule out new intracranial pathology such as new stroke revolving stroke, cardiac disease or cardiac-related syncope, dehydration or like likely infectious process. No clinical historical elements or exam findings to suspect seizure. Given the prodromal symptoms and events leading up to the syncopal event most likely vasovagal or orthostatic event given her history. Patient denies any symptoms at this time and states she feels normal. Placed on general repairer while workup underway. She was given a L of fluid and re-evaluated. Patient remained asymptomatic during her multiple hours here in the emergency department. Her troponins have been negative. EKG unchanged. Head CT shows no acute findings and only remote infarct which we are already aware of. No leukocytosis or anemia. Normal platelet count. Normal electrolytes normal creatinine, normal glucose. I went and re-evaluated the patient several times. She remains asymptomatic and wants to go home. Discussed with her very low threshold for admission given her syncope event although very likely vasovagal or orthostatic event. She ambulated well here in the ED without difficulties and still expressing desire to go home. Given strict return precautions and she has a PCP she can follow-up with on a close outpatient basis. Patient and family were comfortable with going home with return precautions and nines. Safe for discharge at this time. Differential Diagnosis Differential Diagnosis: She does have significant cardiac and neurological risk factors or broad workup was conducted to rule out new intracranial pathology such as new stroke revolving stroke, cardiac disease or cardiac-related syncope, dehydration or like likely infectious process. No clinical historical elements or exam findings to suspect seizure. Given the prodromal symptoms and events leading up to the syncopal event most likely vasovagal or orthostatic event given her history. Lab Data MDM Lab Attestation statement: I personally reviewed the patient's lab results. 08/30/25 21:33 08/30/25 21:33 Labs: Lab Results 08/30/25 08/31/25 Range/Units 21:33 01:51 WBC 7.3 (4.5-10.0) K/mm3 RBC 4.10 L (4.2-5.4) M/mm3 Hgb 12.6 (12.0-15.0) g/dL Hct 37.5 (37.0-47.0) % MCV 91.5 (80-100) fl MCH 30.7 (26-34) pg MCHC 33.6 (32-36) g/dl RDW 14.5 (11.5-14.5) % Plt Count 233 (150-375) k/mm3 MPV 9.6 (7.4-10.4) fl Immature Gran % (Auto) 0.4 (0-0.5) % Neut % (Auto) 70.2 (45.5-73.1) % Lymph % (Auto) 20.2 (18.3-44.2) % Bertie % (Auto) 7.7 (2.6-8.5) % Eos % (Auto) 1.4 (0-4.4) % Baso % (Auto) 0.1 L (0.2-1.2) % Lymph # (Auto) 1.48 (0.9-3.2) K/mm3 Bertie # (Auto) 0.6 (0.1-0.6) K/mm3 Eos # (Auto) 0.1 (0-0.3) K/mm3 Baso # (Auto) 0.0 (0.0-0.1) K/mm3 Abs Immat Gran (auto) 0.03 (0.00-0.031) K/mm3 Absolute Neuts (auto) 5.1 (1.3-6.7) K/mm3 Absolute Nucleated RBC 0.000 (0.0-0.012) K/mm3 Nucleated RBC % 0.0 (0.0-0.2) % Sodium 142 (137-145) mmol/L Potassium 3.5 (3.4-5.0) mmol/L Chloride 110 H (98-107) mmol/L Carbon Dioxide 27 (22-30) mmol/L Anion Gap 5 (4-12) mmol/L BUN 16 (7-17) mg/dL Creatinine 0.79 (0.7-1.0) mg/dL Estim Creat Clear Calc Not Reportable Estimated GFR > 60 (59 - ) Glucose 116 H (65-110) mg/dL Calcium 9.2 (8.4-10.2) mg/dL Magnesium 1.9 (1.6-2.3) mg/dL Total Bilirubin 0.4 (0.2-1.3) mg/dL AST 39 H (14-36) U/L ALT 37 H (6-35) U/L Alkaline Phosphatase 118 (38-126) U/L Troponin I < 0.012 < 0.012 (0.000-0.034) ng/mL Total Protein 6.7 (6.3-8.2) g/dL Albumin 3.6 (3.5-5.1) g/dL Imaging Data Attestation: I personally reviewed and interpreted this imaging study as follows: My impression: No acute intracranial event
[2025-08-30 21:42] LABS: Hematocrit 37.5 % (37.0-47.0); Hemoglobin 12.6 g/dL (12.0-15.0); Immature Granulocyte Percent A 0.4 % (0-0.5); Lymphocytes Absolute Auto 1.48 K/mm3 (0.9-3.2); Mean Corpuscular HGB Conc 33.6 g/dl (32-36); Mean Corpuscular Hemoglobin 30.7 pg (26-34); Mean Corpuscular Volume 91.5 fl (80-100); Nucleated Red Blood Cells Absolute Auto 0.000 K/mm3 (0.0-0.012); Nucleated Red Blood Cells Perc 0.0 % (0.0-0.2); Platelet Count Result 233 k/mm3 (150-375); Red Blood Count 4.10 M/mm3 (4.2-5.4); White Blood Count 7.3 K/mm3 (4.5-10.0)
[2025-08-30] MEDS: LACTATED RINGERS 1,000 ML 999 ML IV CONT (21:49)
[2025-08-30 21:55] LABS: Alanine Aminotransferase 37 U/L (6-35); Albumin Level 3.6 g/dL (3.5-5.1); Alkaline Phosphatase 118 U/L (38-126); Anion Gap 5 mmol/L (4-12); Aspartate Amino Transferase 39 U/L (14-36); Bilirubin,Total 0.4 mg/dL (0.2-1.3); Blood Urea Nitrogen 16 mg/dL (7-17); Calcium 9.2 mg/dL (8.4-10.2); Carbon Dioxide 27 mmol/L (22-30); Chloride 110 mmol/L (98-107); Estimated Glomerular Filt Rate > 60; Glucose 116 mg/dL (65-110); Magnesium 1.9 mg/dL (1.6-2.3); Potassium 3.5 mmol/L (3.4-5.0); Sodium 142 mmol/L (137-145); Total Protein 6.7 g/dL (6.3-8.2)
[2025-08-30 22:05] LABS: Troponin I < 0.012 ng/mL (0.000-0.034)
[2025-08-30 23:09] VITALS: PULSE 88; RESP 18; TEMP 36.8; O2SAT 93
[2025-08-31 02:28] LABS: Troponin I < 0.012 ng/mL (0.000-0.034)
== END 2025-08-31 02:56 | disposition home or self-care (01) ==
PROVIDERS: Emergency Provider Student in an Organized Health Care Education/Training Program; PCP Family Medicine
DX: R55 Syncope and collapse (principal); I11.0 Hypertensive heart disease with heart failure; I50.9 Heart failure, unspecified; I25.10 Atherosclerotic heart disease of native coronary artery without angina pectoris; I69.30 Unspecified sequelae of cerebral infarction; J45.909 Unspecified asthma, uncomplicated; E78.2 Mixed hyperlipidemia; E55.9 Vitamin D deficiency, unspecified; R73.03 Prediabetes; H81.09 Meniere's disease, unspecified ear; K21.9 Gastro-esophageal reflux disease without esophagitis; M17.9 Osteoarthritis of knee, unspecified; Z96.652 Presence of left artificial knee joint; Z87.891 Personal history of nicotine dependence; Z96.1 Presence of intraocular lens; Z98.42 Cataract extraction status, left eye; Z98.41 Cataract extraction status, right eye; Z90.49 Acquired absence of other specified parts of digestive tract; Z90.710 Acquired absence of both cervix and uterus; Z90.79 Acquired absence of other genital organ(s); Z90.722 Acquired absence of ovaries, bilateral; Z79.02 Long term (current) use of antithrombotics/antiplatelets; Z79.82 Long term (current) use of aspirin; Z79.899 Other long term (current) drug therapy; R94.31 Abnormal electrocardiogram [ECG] [EKG]
CPT/HCPCS: 36415; 70450; 80053; 83735; 84484; 85025; 93005; 96360; 99284; J7120